=== PATIENT | female | born 1955 | race Caucasian/White ===

== ENCOUNTER 2018-08-17 09:50 | Outpatient (CLI) | payer MEDICARE, SELFPAY | END 2018-08-17 10:10 | DX: E11.9 Type 2 diabetes mellitus without complications (principal); E03.9 Hypothyroidism, unspecified | CPT/HCPCS: 36415; 83036 ==

== ENCOUNTER 2018-11-10 13:57 | Emergency (ER) | payer MEDICARE, OTHER, SELFPAY ==
[2018-11-10] VITALS (16 sets, daily range): BP systolic 127–146; BP diastolic 57–72; PULSE 72–85; RESP 13–23; TEMP 36.8; O2SAT 93–100
[2018-11-10 14:45] LABS: Abs Immature Grans 0.02 k/cumm (0.0-0.09); Absolute Basophil Count 0.05 k/cumm (0.0-0.2); Absolute Lymphocyte Count 1.59 k/cumm (1.2-3.4); Absolute Monocyte Count 0.59 k/cumm (0.11-0.7); Absolute Neutrophil Count 4.89 k/cumm (1.2-6.7); Basophils % 0.7; Eosinophils % 2.7; HCT 41.9 % (36.0-46.0); HGB 13.5 g/dL (12.0-15.5); Immature Grans % 0.3; Lymphocytes % 21.7; Mean Corp. HGB Concentration 32.2 g/dL (32.0-36.0); Mean Corpuscular Hemoglobin 27.5 pg (27.0-33.0); Mean Corpuscular Volume 85.3 fL (80-95); Mean Platelet Volume 10.3 fL (8.0-11.0); Neutrophils % 66.6; Platelet Count 337 x1000/uL (130-400); RBC 4.91 m/cumm (4.00-5.20); RBC Distribution Width 14.4 % (11.7-14.6); White Blood Cell Count 7.34 k/cumm (4.4-10.8)
[2018-11-10] MEDS: Albuterol/Ipratropium 3 ML UPD VIAL UPD (14:54)
[2018-11-10 15:16] LABS: D-Dimer 346 ng/mlFEU (<500)
--- NOTE | 2018-11-10 15:47 | DI.RAD_ITS ---
SYMPTOM/DIAGNOSIS: COUGH, SOB CHEST X-RAY: Frontal and lateral views. Comparison 07/12/17 The heart is normal in size. The lungs are clear. The mediastinal structures and pleura appear intact. CONCLUSION: Normal chest.
[2018-11-10 15:49] LABS: ALT 15 U/L (12-78); AST 13 U/L (15-37); Albumin 3.6 g/dL (3.4-5.0); Alkaline Phosphatase 58 U/L (46-116); Anion Gap 11.6 mmol/L (3-11); BUN 22 mg/dL (7-18); Bilirubin, Total 0.3 mg/dL (0.2-1.0); CO2 26.4 mmol/L (21.0-32.0); CREATININE 0.95 mg/dL (0.55-1.02); Calcium 9.3 mg/dL (8.5-10.1); Chloride 99 mmol/L (98-107); Estimated GFR 59.61 (mL/min/1.73m2); Glucose 121 mg/dL (70-100); Magnesium 1.7 mg/dL (1.8-2.4); Potassium 4.2 mmol/L (3.5-5.1); Sodium 137 mmol/L (136-145); TSH (W/Ref FT4) 0.47 uIU/mL (0.358-3.74); Total Protein 7.4 g/dL (6.4-8.2)
[2018-11-10 15:55] LABS: Troponin I < 0.02 ng/mL (0.00-0.06)
--- NOTE | 2018-11-10 18:34 | ED.GENADUL_ITS ---
Discharge Plan Disposition Patient Disposition: HOME Condition: Good Discharge Details Chief Complaint: Chest Pain Clinical Impression: Heart palpitations Primary Care Provider: Aylin Gallego ED Provider: Raul Wright Home Meds and New Rx's Prescriptions: No Action Silenor 6 mg tablet 6 mg PO QHS RF: 0 ranitidine HCl 300 mg tablet 300 mg PO DAILY Qty: 90 RF: 3 levothyroxine 137 mcg tablet 137 mcg PO DAILY Qty: 90 RF: 3 lorazepam 0.5 mg tablet 0.5 mg PO Q6H PRN MDD 0.5mg PRN (Reason: anxiety) Qty: 20 RF: 0 hydrocodone-acetaminophen 5-325 mg tablet 5 mg PO DAILY PRN MDD 5mg PRN (Reason: pain) Qty: 30 RF: 0 mupirocin calcium [Bactroban] 2 % cream 1 applic TP TID Qty: 30 RF: 0 blood-glucose meter 1 EACH misc 1 ea Miscellaneous as directed Qty: 1 RF: 0 Lantus Solostar U-100 Insulin 100 UNIT/1 ML insulin pen 40 unit SQ QPM Qty: 3 RF: 4 vit d/vit k 1 tsp PO DAILY RF: 0 Advair Diskus 1 EACH blister with device 1 puff Inhalation BID Qty: 1 RF: 3 pen needle, diabetic 1 EACH needle 6 ea Sub-Q DAILY Qty: 100 RF: 12 acetaminophen 500 MG tablet 1,000 mg PO Q6H PRN Qty: 100 RF: 0 albuterol sulfate 5 MG/1 ML solution 2.5 mg Inhalation QID Qty: 40 RF: 3 Humalog KwikPen Insulin 100 UNIT/1 ML insulin pen 6 - 15 unit SQ AC Qty: 3 RF: 3 levalbuterol tartrate [Xopenex HFA] 15 GM HFA aerosol inhaler 2 puff Inhalation QID PRN Qty: 3 RF: 3 fluticasone 16 GM spray,suspension 50 mcg NS DAILY Qty: 1 RF: 2 magnesium oxide 400 MG tablet 2 tab PO DAILY RF: 0 Levocarnitine/Pantothe/Taurine [l-Carnitine 1,000 mg/15 ml Liq] 480 ML liquid 1 tbs PO DAILY RF: 0 Hamilton ThorneTouch Ultra Test 1 EACH strip 1 ea Miscellaneous 5X/DAY Qty: 100 RF: 4 metformin 1,000 mg tablet 1,000 mg PO BID Qty: 180 RF: 4 celecoxib [Celebrex] 200 mg capsule 200 mg PO BID Qty: 180 RF: 3 duloxetine 30 mg capsule,delayed release(DR/EC) 30 mg PO As Directed Qty: 270 RF: 4 lisinopril 10 mg tablet 10 mg PO DAILY Qty: 90 RF: 3 Jardiance 25 mg tablet 25 mg PO DAILY Qty: 90 RF: 4 Discharge Instructions Instructions: Palpitations (ED) Additional Instructions: If you notice any worsening of your symptoms, or any new symptoms such as vomiting, diarrhea, fever, chills, shortness of breath, chest pain, numbness, weakness, or fainting , please return immediately to the emergency department for reevaluation. Please follow up with your primary care provider as soon as possible for reassessment and reevaluation, as well as follow-up for your Dian marcos. as always, it was a pleasure participating in your medical care today. Referrals: Aylin Gallego NP [Primary Care Provider] - Medical Decision Making This is a 63-year-old female with a past medical history of fibromyalgia, asthma, diabetes who presents today for occasional episodes of palpitations, sweatiness, and nausea. She has had no vomiting or abdominal pain. Symptoms are nonexertional. She denies any chest pain. In the past she has had episodes like this in the past, with subsequent negative stress test, Holter monitors, and other workup. She presents today for further evaluation of the symptoms. She denies any syncope, or exertional syncope. Physical exam demonstrates no significant abnormalities, no chest pain or other concerning red flags. Laboratory workup was performed, and demonstrates negative d-dimer, negative serial troponins, electrolytes appear to be within normal limits, WBC count normal, no left shift. Chest x-ray shows no evidence of pneumothorax, or significant pneumonia. The patient continues to feel excellent and asymptomatic. Serial troponins, benign workup, negative d-dimer, reassuring and normal vital signs I do feel that she can be safely discharged home with close follow-up. We will prescribe a zio patch. We discussed red flags for which to return the patient understands. I have extensively reviewed the treatment plan and discharge instructions with the patient and their family. I have addressed all patient concerns at this time. The patient and family was made aware of what symptoms to monitor for that would warrant a return to the emergency department. Discussed the plan with the patient and family, they demonstrate verbal understanding and agreement with our assessment and plan at this time. EKG 14: 23 Rate 77, intervals normal, sinus rhythm, no significant ST elevations or depressions single T wave inversion in V1 which is normal. Questionable Q waves in lead III. RSR prime in V1. No other abnormalities. These findings are present on previous EKG from 09/02/15 [facility] General Date/Time Provider Initiated Documentation: 11/10/18 14:26 . HPI Narrative: This is a 63-year-old female with past medical history of diabetes, fibromyalgia, asthma, who presents today for 4 episodes of intermittent palpitations, occasional sweatiness and clamminess, with some mild nausea. It has happened over the last few days. It is nonexertional, and usually occurs at rest. She denies any significant or severe chest pain with these episodes. She denies any pain in her arm neck or shoulders. She does have a mild cough for the last month, but states that this is nonproductive. She denies any pleuritic chest pain. She denies any hemoptysis, fever, chills, headache, neck pain, syncope. She denies any exertional component. She denies any other modifying factors. She currently states that she has no symptoms and feels very well. Related Data Home Medications Medication Instructions Recorded Confirmed blood-glucose meter #1 ea 06/10/16 11/02/18 insulin glargine [Lantus Solostar] 40 unit SQ QPM #3 box 09/08/16 11/02/18 Vit D/Vit K 1 tsp PO DAILY 11/01/16 11/02/18 fluticasone-salmeterol [Advair 1 puff INHALATION BID #1 puff 12/02/16 11/02/18 250/50 Diskus] pen needle, diabetic #100 ndl 12/27/16 11/02/18 acetaminophen 1,000 mg PO Q6H PRN #100 tab-cap 05/17/17 11/02/18 albuterol sulfate 2.5 mg INHALATION QID #40 ml 07/08/17 11/02/18 fluticasone 50 mcg NS DAILY #1 spray 08/08/17 11/02/18 insulin lispro [Humalog Syringe] 6 - 15 unit SQ AC #3 pen 08/08/17 11/02/18 levalbuterol tartrate [Xopenex Hfa] 2 puff INHALATION QID PRN #3 inh 08/08/17 11/02/18 Levocarnitine/Pantothe/Taurine 1 tbs PO DAILY 11/03/17 11/02/18 [l-Carnitine 1,000 mg/15 ml Liq] blood sugar diagnostic [Onetouch #100 strip 11/03/17 11/02/18 Ultra Test Strips] magnesium oxide 2 tab PO DAILY 11/03/17 11/02/18 hydrocodone 5 mg-acetaminophen 325 5 mg PO DAILY PRN PRN #30 tab MDD 08/17/18 11/02/18 mg tablet 5mg levothyroxine 137 mcg tablet 137 mcg PO DAILY #90 tab-cap 08/17/18 11/02/18 lorazepam 0.5 mg tablet 0.5 mg PO Q6H PRN PRN #20 tab MDD 08/17/18 11/02/18 0.5mg ranitidine 300 mg tablet 300 mg PO DAILY #90 tab 08/17/18 11/02/18 metformin 1,000 mg tablet 1,000 mg PO BID #180 tab-cap 08/28/18 11/02/18 celecoxib 200 mg capsule 200 mg PO BID #180 tab-cap 09/11/18 11/02/18 mupirocin 2 % topical cream 1 applic TP TID #30 gm 10/19/18 11/02/18 duloxetine 30 mg capsule,delayed 30 mg PO As Directed #270 tab-cap 10/30/18 11/02/18 release empagliflozin 25 mg tablet 25 mg PO DAILY #90 tab 10/30/18 11/02/18 lisinopril 10 mg tablet 10 mg PO DAILY #90 tab-cap 10/30/18 11/02/18 doxepin 6 mg tablet 6 mg PO QHS tab 11/02/18 11/02/18 Previous Rx's Medication Instructions Recorded albuterol sulfate 2.5 mg INHALATION QID #40 ml 07/08/17 fluticasone 50 mcg NS DAILY #1 spray 08/08/17 insulin lispro [Humalog Syringe] 6 - 15 unit SQ AC #3 pen 08/08/17 levalbuterol tartrate [Xopenex Hfa] 2 puff INHALATION QID PRN #3 inh 08/08/17 blood sugar diagnostic [Onetouch #100 strip 11/03/17 Ultra Test Strips] hydrocodone 5 mg-acetaminophen 325 5 mg PO DAILY PRN PRN #30 tab MDD 08/17/18 mg tablet 5mg levothyroxine 137 mcg tablet 137 mcg PO DAILY #90 tab-cap 08/17/18 lorazepam 0.5 mg tablet 0.5 mg PO Q6H PRN PRN #20 tab MDD 08/17/18 0.5mg ranitidine 300 mg tablet 300 mg PO DAILY #90 tab 08/17/18 metformin 1,000 mg tablet 1,000 mg PO BID #180 tab-cap 08/28/18 celecoxib 200 mg capsule 200 mg PO BID #180 tab-cap 09/11/18 mupirocin 2 % topical cream 1 applic TP TID #30 gm 10/19/18 duloxetine 30 mg capsule,delayed 30 mg PO As Directed #270 tab-cap 10/30/18 release empagliflozin 25 mg tablet 25 mg PO DAILY #90 tab 10/30/18 lisinopril 10 mg tablet 10 mg PO DAILY #90 tab-cap 10/30/18 Allergies Allergy/AdvReac Type Severity Reaction Status Date / Time ampicillin Allergy Intermediate rash Verified 11/02/18 09:35 latex Allergy Mild Skin Rash Verified 11/02/18 09:35 Sulfa (Sulfonamide Allergy Mild Skin Rash Verified 11/02/18 09:35 Antibiotics) carbamazepine AdvReac Mild fever, Verified 11/02/18 09:35 myalgias General Stated Complaint: Chest Pain SHIRIN: 2 Review of Systems Review of Systems All systems reviewed & are unremarkable except as noted in HPI and below PFSH Medical History Excessive cerumen in right ear canal (Acute) Skin lesion of neck (Acute) Asthma DM (diabetes mellitus) GERD (gastroesophageal reflux disease) HTN (hypertension) Hypothyroidism JASON (obstructive sleep apnea) Obesity Surgical History BARIATRIC SURGERY Biopsy of breast (~1994) Colonoscopy - IV Sedation (02/08/11) Colonoscopy - MAC (12/24/16) Ligation of fallopian tube (~1983) Open Carpal Tunnel release Trigger Finger release (~2015) Family History Mother Heart disease Neoplasm Father No problems noted. Sister Substance abuse Sister Essential hypertension Sister SIDS (sudden syndrome) Sister No problems noted. Brother Essential hypertension Brother Essential hypertension Neoplasm Grandfather Neoplasm Grandfather Neoplasm Grandmother Heart disease Grandmother Neoplasm Son No problems noted. Son Neoplasm Family History Bipolar disorder Leukemia Social History household members: other details: 2 highest education level completed: some college, no degree current occupational status: disabled pets and animals: Yes pets and animals: dog(s) what type of physical activity do you participate in: none Smoking and Tabacco status: Former Tobacco Use alcohol intake: never substance use type: does not use special jin needs: No Exam Narrative Exam Narrative: 1.Const: Well-nourished, Well-developed, appearing stated age 2.Eyes: PERRL, no conjunctival injection, and symmetrical lids. 3.ENT: Atraumatic external nose and ears. Moist MM. Neck: Symmetric, trachea midline, No thyromegaly. 4.CVS: +S1/S2, No murmurs or gallops. Peripheral pulses 2+ and equal in all extremities. Brisk capillary refill in all extremities. 5.RESP: Unlabored respiratory effort. Clear to auscultation bilaterally. No wheezes rales or rhonchi 6.GI: Soft, Nontender/Nondistended, No hepatosplenomegaly. No guarding or rebound. 7.MSK: Normocephalic/Atraumatic, Extremities w/o deformity or ttp No cyanosis or clubbing, Normal movement of all extremities 8.Skin: Warm, Dry. No rashes or lesions. 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 Sensation grossly intact, no focal neurologic deficits. 10.Psych: (AAO) x3. Appropriate mood and affect Course Vital Signs Temperature 36.8 C 11/10/18 14:12 Pulse 79 11/10/18 14:12 Respiratory Rate 18 11/10/18 14:12 Blood Pressure 146/65 H 11/10/18 14:12 Pulse Oximetry 98 11/10/18 14:12 Temperature 36.8 C 11/10/18 14:12 Temperature Source Temporal Artery Scan 11/10/18 14:12 Pulse 72 11/10/18 17:46 Pulse 73 11/10/18 17:50 Respiratory Rate 19 11/10/18 17:50 Respiratory Effort 11/10/18 14:55 Respiratory Depth Normal 11/10/18 14:55 Respiratory Pattern Normal 11/10/18 14:55 Blood Pressure 130/57 L 11/10/18 17:46 Blood Pressure Mean 75 11/10/18 17:46 Pulse Oximetry 97 11/10/18 17:50 Oxygen Delivery Method Room Air 11/10/18 14:12 Oxygen Flow Rate 0 11/10/18 14:12 Pain Level 0 11/10/18 14:12 Lab/Test Results Lab/Test Results: Laboratory Tests Range/Units 11/10/18 11/10/18 11/10/18 14:30 15:05 15:05 WBC (4.4-10.8) k/cumm 7.34 RBC (4.00-5.20) m/cumm 4.91 Hgb (12.0-15.5) g/dL 13.5 Hct (36.0-46.0) % 41.9 MCV (80-95) fL 85.3 MCH (27.0-33.0) pg 27.5 MCHC (32.0-36.0) g/dL 32.2 RDW (11.7-14.6) % 14.4 Plt Count (130-400) x1000/uL 337 MPV (8.0-11.0) fL 10.3 Immature Gran % 0.3 Neutrophils % 66.6 Lymphocytes % 21.7 Monocytes % 8.0 Eosinophils % 2.7 Basophils % 0.7 Absolute Neutrophils (1.2-6.7) k/cumm 4.89 Absolute Lymphocytes (1.2-3.4) k/cumm 1.59 Absolute Monocytes (0.11-0.7) k/cumm 0.59 Absolute Eosinophils (0.0-0.7) k/cumm 0.20 Absolute Basophils (0.0-0.2) k/cumm 0.05 D-Dimer (<500) ng/mlFEU Sodium (136-145) mmol/L 137 Potassium (3.5-5.1) mmol/L 4.2 Chloride (98-107) mmol/L 99 Carbon Dioxide (21.0-32.0) mmol/L 26.4 Anion Gap (3-11) mmol/L 11.6 H BUN (7-18) mg/dL 22 H Creatinine (0.55-1.02) mg/dL 0.95 Estimated GFR/1.73 m2 (mL/min/1.73m2) 59.61 Glucose (70-100) mg/dL 121 H Calcium (8.5-10.1) mg/dL 9.3 Magnesium Cancelled 1.7 L Total Bilirubin (0.2-1.0) mg/dL 0.3 AST (15-37) U/L 13 L ALT (12-78) U/L 15 Alkaline Phosphatase (46-116) U/L 58 Troponin I (0.00-0.06) ng/mL < 0.02 Total Protein (6.4-8.2) g/dL 7.4 Albumin (3.4-5.0) g/dL 3.6 TSH (0.358-3.74) uIU/mL 0.47 Range/Units 11/10/18 15:05 WBC (4.4-10.8) k/cumm RBC (4.00-5.20) m/cumm Hgb (12.0-15.5) g/dL Hct (36.0-46.0) % MCV (80-95) fL MCH (27.0-33.0) pg MCHC (32.0-36.0) g/dL RDW (11.7-14.6) % Plt Count (130-400) x1000/uL MPV (8.0-11.0) fL Immature Gran % Neutrophils % Lymphocytes % Monocytes % Eosinophils % Basophils % Absolute Neutrophils (1.2-6.7) k/cumm Absolute Lymphocytes (1.2-3.4) k/cumm Absolute Monocytes (0.11-0.7) k/cumm Absolute Eosinophils (0.0-0.7) k/cumm Absolute Basophils (0.0-0.2) k/cumm D-Dimer (<500) ng/mlFEU 346 Sodium (136-145) mmol/L Potassium (3.5-5.1) mmol/L Chloride (98-107) mmol/L Carbon Dioxide (21.0-32.0) mmol/L Anion Gap (3-11) mmol/L BUN (7-18) mg/dL Creatinine (0.55-1.02) mg/dL Estimated GFR/1.73 m2 (mL/min/1.73m2) Glucose (70-100) mg/dL Calcium (8.5-10.1) mg/dL Magnesium Total Bilirubin (0.2-1.0) mg/dL AST (15-37) U/L ALT (12-78) U/L Alkaline Phosphatase (46-116) U/L Troponin I (0.00-0.06) ng/mL Total Protein (6.4-8.2) g/dL Albumin (3.4-5.0) g/dL TSH (0.358-3.74) uIU/mL
[2018-11-10 18:38] LABS: Troponin I < 0.02 ng/mL (0.00-0.06)
== END 2018-11-10 19:20 | disposition home or self-care (01) ==
PROVIDERS: Emergency Provider Student in an Organized Health Care Education/Training Program
DX: R00.2 Palpitations (principal); R11.0 Nausea; E11.9 Type 2 diabetes mellitus without complications; Z79.4 Long term (current) use of insulin; I10 Essential (primary) hypertension
CPT/HCPCS: 80053; 93005; 93225; 94640; 99285; 71046; 83735; 84443; 84484; 85025; 85379; 93010; J7620

== ENCOUNTER 2018-11-16 02:13 | Outpatient (CLI) | payer MEDICARE, OTHER, SELFPAY ==
[2018-11-16 10:56] LABS: Hemoglobin A1C 9.9 % (4.5-6.2)
[2018-11-16 11:03] LABS: ALT 23 U/L (12-78); AST 13 U/L (15-37); Albumin 3.8 g/dL (3.4-5.0); Alkaline Phosphatase 66 U/L (46-116); Anion Gap 17.5 mmol/L (3-11); BUN 16 mg/dL (7-18); Bilirubin, Total 0.4 mg/dL (0.2-1.0); CO2 22.5 mmol/L (21.0-32.0); CREATININE 0.95 mg/dL (0.55-1.02); Calcium 10.2 mg/dL (8.5-10.1); Chloride 99 mmol/L (98-107); Cholesterol 270 mg/dL (50-200); Estimated GFR 59.61 (mL/min/1.73m2); Glucose 124 mg/dL (70-100); HDL Cholesterol 36 mg/dL (40-60); LDL CHOLESTEROL 187 mg/dL (<100); Potassium 4.5 mmol/L (3.5-5.1); Sodium 139 mmol/L (136-145); TSH (W/Ref FT4) 0.17 uIU/mL (0.358-3.74); Total Protein 7.7 g/dL (6.4-8.2); Triglyceride 226 mg/dL (30-150)
[2018-11-16 11:24] LABS: FREE T4 1.89 ng/dL (0.76-1.46)
--- NOTE | 2018-11-29 20:02 | ZIOP_ITS ---
ZIO PATCH REPORT DATE OF READING: November 29, 2018 STUDY INDICATION: Palpitations. REQUESTING PROVIDER: Aylin Gallego N.P. FINDINGS: The patient was monitored for 7 days and 5 hours. The predominant underlying rhythm was sinus rhythm. Average heart rate in sinus rhythm 82 beats per minute, range of 56-136 beats per minute. There was rare ectopy, <1% PACs, and <1% PVCs. There was a 5 beat ventricular run, average heart rate 159 beats per minute, range 124-203 beats per minute. There were 4 episodes of supraventricular tachycardia, average heart rate 159 beats per minute, range of 76-218 beats per minute. The longest episode lasted 13 beats with an average heart rate of 187 beats per minute. There were no pauses greater than 3 seconds. There was no higher degree heart block. There were 8 patient events, 1 event correlated with PVCs and PACs, all other events did not correlate with arrhythmias. FINAL INTERPRETATION: Minor atrial and ventricular arrhythmias, asymptomatic.
== END 2018-11-16 02:33 ==
DX: I10 Essential (primary) hypertension (principal); E11.9 Type 2 diabetes mellitus without complications; E03.9 Hypothyroidism, unspecified; E78.5 Hyperlipidemia, unspecified; F32.9 Major depressive disorder, single episode, unspecified; G47.33 Obstructive sleep apnea (adult) (pediatric); K21.9 Gastro-esophageal reflux disease without esophagitis; E66.9 Obesity, unspecified; Z98.84 Bariatric surgery status; G47.00 Insomnia, unspecified
CPT/HCPCS: 36415; 80053; 80061; 83721; 83036; 84439; 84443

== ENCOUNTER 2018-12-07 00:29 | Outpatient (CLI) | payer MEDICARE, OTHER, SELFPAY ==
--- NOTE | 2018-12-07 09:00 | DI.MAMMO_ITS ---
SYMPTOM/DIAGNOSIS: SCREENING, Z12.31 MAMMOGRAMS: Mammograms were interpreted according to the usual protocol including computer analysis with CAD system, tomosynthesis and C view imaging. Comparison is with the prior examinations. No suspicious masses or microcalcifications are seen. There is no definite evidence of malignancy. IMPRESSION: Negative mammogram. Routine screening is recommended. Category 1. Breast density B. MQSA ASSESSMENT OF FINDINGS: Negative. Category 1. Patient will receive a letter notifying them of these results. BI-RADS category B. There are scattered areas of fibroglandular density.
== END 2018-12-07 00:49 ==
DX: Z12.31 Encounter for screening mammogram for malignant neoplasm of breast (principal)
CPT/HCPCS: 77063; 77067

== ENCOUNTER 2019-01-24 02:02 | Outpatient (CLI) | payer MEDICARE, OTHER, SELFPAY ==
[2019-01-24 11:41] LABS: TSH (W/Ref FT4) 0.19 uIU/mL (0.358-3.74)
[2019-01-24 12:09] LABS: FREE T4 1.21 ng/dL (0.76-1.46)
== END 2019-01-24 02:22 ==
DX: E03.9 Hypothyroidism, unspecified (principal)
CPT/HCPCS: 36415; 84439; 84443

== ENCOUNTER 2019-05-03 01:27 | Outpatient (CLI) | payer MEDICARE, OTHER, SELFPAY ==
[2019-05-03 11:14] LABS: Hemoglobin A1C 11.5 % (4.5-6.2)
[2019-05-03 11:23] LABS: TSH (W/Ref FT4) 1.23 uIU/mL (0.36-3.74)
== END 2019-05-03 01:47 ==
DX: E03.9 Hypothyroidism, unspecified (principal); E11.9 Type 2 diabetes mellitus without complications
CPT/HCPCS: 36415; 83036; 84443

== ENCOUNTER 2019-07-26 07:01 | Outpatient (CLI) | payer MEDICARE, OTHER, SELFPAY ==
--- NOTE | 2019-07-26 09:16 | DI.MRI_ITS ---
EXAM: MR LUMBAR SPINE WO CLINICAL HISTORY: Rule out nerve root damage,foot drop rt, chronic back pain. TECHNIQUE: Multiplanar multisequence MRI was performed. COMPARISON: MRI - LUMBAR SPINE WO CONTRAST from 03/11/2014 FINDINGS: No significant bony signal abnormality is seen. The conus medullaris appears intact. No significant findings from the T12-L1 level to the L3-4 level. Bony spinal canal appears intact throughout. At L4-5, there is central disc herniation which is moderate in size. There is moderate facet hypertr ophy at L4-5. Central disc herniation and facet hypertrophy cause borderline central canal spinal aditya nosis. Neural foramina appear well maintained. Disc herniation is most prominent centrally but also extends to the right side. There is possible impingement on right L5 nerve root. At L5-S1, there is moderate central canal spinal stenosis and prominence of the disc-osteophyte compl ex. There is bilateral neural foraminal narrowing. There is moderate hypertrophic degenerative lopes e of the facet joints at L5-S1 as well. IMPRESSION: Central to right-sided disc herniation at L4-5, possible impingement right L5 nerve root. Moderate central canal spinal stenosis and bilateral neural foraminal stenosis at L5-S1
== END 2019-07-26 07:21 ==
DX: M54.5 Low back pain (principal); M21.371 Foot drop, right foot; M51.16 Intervertebral disc disorders with radiculopathy, lumbar region; M48.07 Spinal stenosis, lumbosacral region
CPT/HCPCS: 72148

== ENCOUNTER 2020-07-29 21:26 | Outpatient (REF) | payer MEDICARE, OTHER, SELFPAY ==
[2020-07-29 22:12] LABS: ALT 24 U/L (14-59); AST 17 U/L (15-37); Alkaline Phosphatase 72 U/L (46-116); Anion Gap 8.7 mmol/L (3-11); BUN 27 mg/dL (7-18); Bilirubin, Total 0.3 mg/dL (0.2-1.0); CO2 26.3 mmol/L (21.0-32.0); CREATININE 0.89 mg/dL (0.55-1.02); Calcium 9.1 mg/dL (8.5-10.1); Calculated LDL 149 mg/dL (<100); Chloride 101 mmol/L (98-107); Cholesterol 242 mg/dL (<200); Glucose 81 mg/dL (74-106); HDL Cholesterol 66 mg/dL (40-60); Potassium 4.6 mmol/L (3.5-5.1); Sodium 136 mmol/L (136-145); TSH (W/Ref FT4) 0.92 uIU/mL (0.36-3.74); Total Protein 7.5 g/dL (6.4-8.2); Triglyceride 135 mg/dL (<150)
[2020-07-29 22:18] LABS: Hemoglobin A1C 9.2 % (<5.7)
[2020-07-29 22:50] LABS: COMMENT (LAB VIEW ONLY) 43.73 mg/dL; Microalb ug/mg Crea 57.2 ug/mg Cr
== END 2020-07-29 21:46 ==
LOC: LBN 21:26
PROVIDERS: Visit Provider Nurse Practitioner Family
DX: G56.00 Carpal tunnel syndrome, unspecified upper limb (principal); I10 Essential (primary) hypertension; R07.9 Chest pain, unspecified; E11.65 Type 2 diabetes mellitus with hyperglycemia
CPT/HCPCS: 80053; 80061; 82043; 82570; 83036; 84443

== ENCOUNTER 2020-09-03 01:06 | Outpatient (CLI) | payer MEDICARE, OTHER, SELFPAY ==
--- NOTE | 2020-09-03 08:20 | DI.MAMMO_ITS ---
EXAM: MG MAMMO SCREENING CLINICAL HISTORY: screening,z12.39. TECHNIQUE: Bilateral full field digital CC and MLO mammographic images were obtained with 3D tomosyn thesis and utilizing computer aided detection (CAD). COMPARISON: Prior mammograms dating back to 2010, the most recent being December 2018. FINDINGS: No new significant radiograph findings in the right breast. In the left breast there is a new small group of microcalcifications in the upper-outer quadrant loca asa 16 centimetres in from the nipple. Mag views recommend. No mass evident at this location. The re is no new architectural distortion nor skin thickening-retraction. IMPRESSION: 1. No radiographic evidence of malignancy in the right breast. 2. Left breast microcalcification group which requires 2D spot Mag views. BI-RADS Category 0 - Assessment Incomplete: Need additional imaging evaluation Breast Density - Category B - Scattered areas of fibroglandular density Breast density Category C or D implies that the patient has dense breast tissue. Dense breast tissue can make it harder to find cancer on a mammogram. Dense breast tissue is also associated with an incr eased risk of breast cancer. This information about the result of the mammogram report was provided to the patient to raise their awareness. Use this report when you speak with the patient about their risks for breast cancer, which includes their family history. At that time, you may recommend additional screening tests (Ultrasoun d or MRI) as these tests may add significant information. A negative radiographic report should not delay biopsy if a dominant or clinically suspicious mass is present. Up to ten percent of cancers are not identified on mammography. A negative report may reinforce clinical impression. Adenosis and dense breasts may obscure an underlying neoplasm. False positive reports average 6 to 10%. Patient will receive a letter notifying them of these results.
== END 2020-09-03 01:26 ==
DX: Z12.31 Encounter for screening mammogram for malignant neoplasm of breast (principal); R92.0 Mammographic microcalcification found on diagnostic imaging of breast
CPT/HCPCS: 77063; 77067

== ENCOUNTER 2020-09-05 03:36 | Outpatient (CLI) | payer MEDICARE, OTHER, SELFPAY ==
--- NOTE | 2020-09-05 15:00 | DI.MAMMO_ITS ---
EXAM: MG MAMMO SCREEN CALL BACK UNI CLINICAL HISTORY: F/U MAMMO, NEW SMALL GROUP OF MICROCALCIFICATIONS UOQ LT BREAST TECHNIQUE: Spot magnification CC and MLO views were performed of the upper outer quadrant of the lef t breast. COMPARISON: 2010 through 2018. Recent exam of September 21 FINDINGS: The breasts are composed of scattered fibroglandular densities, Breast Density category B. No suspicious masses. A grouping of calcification is barely visible on the magnification views. Th ere are no suspicious features. In retrospect, the calcifications were visible on the 2018 and 2018 exams and appear unchanged. IMPRESSION: BI-RADS Category 2 - Benign Findings Yearly screening mammography is recommended. Breast Density - Category B, scattered fibroglandular densities.
== END 2020-09-05 03:56 ==
DX: R92.0 Mammographic microcalcification found on diagnostic imaging of breast (principal); R92.2 Inconclusive mammogram
CPT/HCPCS: 77063; 77067

== ENCOUNTER 2020-11-17 01:56 | Outpatient (CLI) | payer MEDICARE, OTHER, SELFPAY ==
[2020-11-17 12:11] LABS: HCT 47.2 % (36.0-46.0); HGB 14.8 g/dL (11.2-15.7); MCH 26.9 pg (27.0-33.0); MCHC 31.4 % (32.0-36.0); MCV 85.7 fL (80-95); MPV 9.3 fL (8.0-11.0); Platelet Count 408 10^3/uL (130-400); RBC 5.51 10^6/uL (3.93-5.22); RDW 15.3 % (11.7-14.6); RDW-SD 48.7 fL
[2020-11-17 12:28] LABS: Hemoglobin A1C 8.5 % (<5.7)
[2020-11-17 13:29] LABS: Amylase 42 U/L (25-115); Lipase 144 U/L (73-393); TSH (W/Ref FT4) 10.78 uIU/mL (0.36-3.74)
[2020-11-17 13:52] LABS: FREE T4 0.98 ng/dL (0.76-1.46)
== END 2020-11-17 01:57 | disposition home or self-care (01) ==
LOC: LBO 01:56
DX: E03.9 Hypothyroidism, unspecified (principal); E11.65 Type 2 diabetes mellitus with hyperglycemia; D50.9 Iron deficiency anemia, unspecified; R10.12 Left upper quadrant pain; G47.00 Insomnia, unspecified; Z79.4 Long term (current) use of insulin
CPT/HCPCS: 36415; 83690; 85027; 82150; 83036; 84439; 84443

== ENCOUNTER 2020-11-27 09:40 | Outpatient (CLI) | payer MEDICARE, OTHER, SELFPAY ==
[2020-11-27 12:38] LABS: Abs Immature Grans 0.02 10^3/uL (0.0-0.06); Absolute Basophil Count 0.08 10^3/uL (0.0-0.2); Absolute Eosinophil Count 0.33 10^3/uL (0.0-0.7); Absolute Lymphocyte Count 1.84 10^3/uL (1.2-3.4); Absolute Monocyte Count 0.67 10^3/uL (0.1-0.8); Absolute Neutrophil Count 3.77 10^3/uL (1.2-6.7); Basophils % 1.2; Eosinophils % 4.9; HGB 13.4 g/dL (11.2-15.7); Immature Grans % 0.3; Lymphocytes % 27.4; MCH 26.9 pg (27.0-33.0); MCHC 31.9 % (32.0-36.0); MCV 84.3 fL (80-95); MPV 10.8 fL (8.0-11.0); Neutrophils % 56.2; Nucleated RBC 0 %; Platelet Count 349 10^3/uL (130-400); RBC 4.98 10^6/uL (3.93-5.22); RDW 15.9 % (11.7-14.6); RDW-SD 48.2 fL; WBC 6.71 10^3/uL (4.4-10.8)
[2020-11-27 13:07] LABS: ALT 25 U/L (14-59); AST 16 U/L (15-37); Albumin 4.1 g/dL (3.4-5.0); Alkaline Phosphatase 59 U/L (46-116); Anion Gap 9.7 mmol/L (3-11); BUN 28 mg/dL (7-18); Bilirubin, Total 0.3 mg/dL (0.2-1.0); CO2 31.3 mmol/L (21.0-32.0); CREATININE 1.2 mg/dL (0.55-1.02); Calcium 9.8 mg/dL (8.5-10.1); Chloride 94 mmol/L (98-107); Estimated GFR 45.23 (mL/min/1.73m2); Glucose 114 mg/dL (74-106); Potassium 4.3 mmol/L (3.5-5.1); Sodium 135 mmol/L (136-145); Total Protein 7.5 g/dL (6.4-8.2)
== END 2020-11-27 09:41 | disposition home or self-care (01) ==
LOC: LOS 09:41
DX: R10.12 Left upper quadrant pain (principal)
CPT/HCPCS: 36415; 80053; 85025

== ENCOUNTER 2020-12-05 03:59 | Outpatient (CLI) | payer MEDICARE, OTHER, SELFPAY ==
--- NOTE | 2020-12-05 07:45 | DI.US_ITS ---
EXAM: US ABDOMEN CLINICAL HISTORY: LUQ worsening pain,R10.12 TECHNIQUE: Ultrasound abdomen performed using standard protocol. COMPARISON: No exams were available for comparison FINDINGS: ABDOMINAL AORTA AND IVC: Visualized portions normal caliber. PANCREAS: Normal where visualized. LIVER: Normal. Hepatopedal flow in the Portal Vein. The liver measures 18 cm in length. GALLBLADDER: No evidence of cholelithiasis. No evidence of wall thickening. No pericholecystic fluid identified. BILIARY SYSTEM: Common bile duct measures < 7 mm. No intrahepatic biliary ductal dilation. VEGA'S SIGN: Negative. KIDNEYS: The inferior poles of the kidneys extend into the lower abdomen and appear to connect inferi satish. Suggestive of a horseshoe kidney. This is confirmed on the MRI of the lumbar spine from 07/26. No evidence of renal calculi. No evidence of hydronephrosis. No renal mass or cyst identified. SPLEEN: Not enlarged. ASCITES: None seen. IMPRESSION: 1. No evidence of cholelithiasis or biliary ductal dilatation. 2. Mild hepatomegaly. 3. 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 DATA REPOSITORY:
== END 2020-12-05 04:19 ==
DX: R10.12 Left upper quadrant pain (principal); R16.0 Hepatomegaly, not elsewhere classified
CPT/HCPCS: 76700

== ENCOUNTER 2021-04-22 02:07 | Outpatient (CLI) | payer MEDICARE, OTHER, SELFPAY ==
--- NOTE | 2021-04-22 08:15 | DI.MAMMO_ITS ---
Exam(s) MG MAMMO DIAGNOSTIC UNI US BREAST RT LIMITED EXAM: MG MAMMO DIAGNOSTIC UNI RIGHT AND LIMITED RIGHT BREAST ULTRASOUND CLINICAL HISTORY: Right breast lump, noticed today.N63.13. TECHNIQUE: BOTH CC AND MLO VIEWS OF THE RIGHT BREAST PERFORMED. Also performed additional spot view of the area of concern.. Obtained with 3D Tomosynthesistechnique and utilizing computer aided detec tion (CAD). Also performed limited right breast ultrasound of the new palpable area of concern in the upper-outer quadrant. COMPARISON: Prior mammograms dating back to 2010, the most recent being September 2020. This patient feels a new right breast lump for the last 2 months at approximately 10 o'clock position FINDINGS: Today's right breast mammogram reveals no evidence of new nodule. No malignant-appearing microcalcif ication groups. No new architectural distortion or skin thickening-retraction. Right breast ultrasound was performed over the area of concern in the upper outer quadrant and reveal s 2 findings at the 10 o'clock position. There is an 8 x 4 millimeter benign lipoma. There is also a superficial subdermal 4 x 4 millimeter septated cyst which appears to exactly corresp onds to a palpable finding. This has the appearance of a probable sebaceous cyst or very superficial complicated cyst in the breast. IMPRESSION: No mammographic evidence of malignancy in the right breast. Ultrasound reveals a 4 millimeter complicated cyst or sebaceous cyst at 10 o'clock position of the ri ght breast corresponding to her palpable finding. Appropriate follow-up is repeat right breast ULTRASOUND in 3 months. Findings and recommendations were discussed by myself with the patient today. BI-RADS Category 3 - 3 month - Probably Benign Finding: Recommend follow-up ULTRASOUND in 3 months Breast Density - Category C - Heterogeneously dense Breast density Category C or D implies that the patient has dense breast tissue. Dense breast tissue can make it harder to find cancer on a mammogram. Dense breast tissue is also associated with an incr eased risk of breast cancer. This information about the result of the mammogram report was provided to the patient to raise their awareness. Use this report when you speak with the patient about their risks for breast cancer, which includes their family history. At that time, you may recommend additional screening tests (Ultrasoun d or MRI) as these tests may add significant information. A negative radiographic report should not delay biopsy if a dominant or clinically suspicious mass is present. Up to ten percent of cancers are not identified on mammography. A negative report may reinforce clinical impression. Adenosis and dense breasts may obscure an underlying neoplasm. False positive reports average 6 to 10%. Patient will receive a letter notifying them of these results.
== END 2021-04-22 02:27 ==
PROVIDERS: Visit Provider Nurse Practitioner Family
DX: N60.01 Solitary cyst of right breast; R92.2 Inconclusive mammogram
CPT/HCPCS: 76642; 77061; 77065; G0279

== ENCOUNTER 2021-07-24 01:14 | Outpatient (CLI) | payer MEDICARE, OTHER, SELFPAY ==
--- NOTE | 2021-07-24 07:30 | DI.US_ITS ---
Exam(s) US BREAST RT LIMITED EXAM: US BREAST RT LIMITED CLINICAL HISTORY: 3 month f/u cystic lesion at 10:00 right breast TECHNIQUE: Ultrasound right breast performed using standard protocol. COMPARISON: US US BREAST RT LIMITED from 04/22/2021 FINDINGS: There has been no change in the 1 cm lipoma. There has been no change in appearance of the 0.2 x 0.2 x 0.3 cm subcutaneous cystic lesion at the 10 o'clock position of the right breast 6 cm from the nip ple. No findings suspicious for malignancy. IMPRESSION: 1. Stable cyst at the 10 o'clock position of the right breast 6 cm from the nipple. 2. A follow-up ultrasound in 9 months is recommended for re-evaluation. 3. Findings were discussed with the patient on the date of the examination. BI-RADS Category 3 - Probably Benign Finding: Recommend follow-up imaging as described above. DATA REPOSITORY:
== END 2021-07-24 01:34 ==
DX: Q83.9 Congenital malformation of breast, unspecified (principal); R92.8 Other abnormal and inconclusive findings on diagnostic imaging of breast; N60.01 Solitary cyst of right breast
CPT/HCPCS: 76642

== ENCOUNTER 2021-07-31 10:01 | Emergency (ER) | payer MEDICARE, OTHER, SELFPAY ==
--- NOTE | 2021-07-31 10:00 | RT.EKG_ITS ---
APPROVED REPORT Exam: Resting ECG Reason for Exam: syncope Patient Location: E HR:62 bpm ECG Measurements Heart Rate 62 AXIS MN 150 P 59 QRSd 90 QRS 18 QT 428 T 28 QTc 435 Conclusion Sinus rhythm...normal P axis, V-rate 60- 99 Low voltage, precordial leads...precordial leads <1.0mV Physician: Rate 62, intervals normal, no significant ST elevation or depression. No evidence of sign ificant heart strain on EKG. No evidence of STEMI small Q waves noted in lead III. Inverted T wave in V1. Unchanged from prior EKG on 11/10/18
[2021-07-31 10:08] VITALS: BP 117/73; PULSE 64; TEMP 36.6; O2SAT 97
--- NOTE | 2021-07-31 10:24 | W.ED.GENAD ---
Discharge Plan Disposition Patient Disposition: HOME Condition: Good Discharge Details Clinical Impression: COVID-19, Syncope, Pneumonia due to 2019-nCoV Primary Care Provider: Aylin Gallego ED Provider: Raul Wright Home Meds and New Rx's Prescriptions: Continued potassium gluconate 595 mg (99 mg) tablet 595 mg PO DAILY RF: 0 gabapentin 300 mg capsule 300 mg PO BID Qty: 180 RF: 3 omeprazole 20 mg capsule,delayed release(DR/EC) 20 mg PO DAILY Qty: 90 RF: 3 albuterol sulfate 5 mg/mL solution for nebulization 2.5 mg Inhalation QID PRN (Reason: shortness of breath or wheezing) Qty: 40 RF: 3 lorazepam 1 mg tablet 1 mg PO DAILY MDD 1mg PRN (Reason: anxiety) Qty: 20 RF: 0 mupirocin 2 % ointment 1 applic topical BID Qty: 22 RF: 0 lisinopril-hydrochlorothiazide 20-12.5 mg tablet 1 tab PO DAILY Qty: 90 RF: 3 (DME) blood-glucose meter 1 EACH misc 1 ea Miscellaneous as directed Qty: 1 RF: 0 vit d/vit k 1 tsp PO DAILY RF: 0 (DME) pen needle, diabetic 1 EACH needle 6 ea Sub-Q DAILY Qty: 100 RF: 12 acetaminophen 500 MG tablet 1,000 mg PO Q6H PRN Qty: 100 RF: 0 magnesium oxide 400 MG tablet 2 tab PO DAILY RF: 0 fluticasone propionate 50 mcg/actuation spray,suspension 50 mcg NS BID PRN (Reason: nasal congestion) Qty: 1 RF: 2 (DME) pen needle, diabetic [BD Ultra-Fine Mini Pen Needle] 31 gauge x 3/16 needle See Rx Instructions .ROUTE .MEDSUPPLY Qty: 100 RF: 3 Tresiba FlexTouch U-100 100 unit/mL (3 mL) insulin pen 10 - 50 unit SC DAILY Qty: 15 RF: 6 (DME) blood sugar diagnostic Strip 1 ea Miscellaneous 5X/DAY Qty: 100 RF: 4 duloxetine 30 mg capsule,delayed release(DR/EC) 30 mg PO As Directed Qty: 270 RF: 4 levalbuterol tartrate [Xopenex HFA] 45 mcg/actuation HFA aerosol inhaler 2 puff Inhalation QID PRN Qty: 3 RF: 3 nystatin 100,000 unit/gram powder 1 applic TP BID Qty: 120 RF: 3 celecoxib [Celebrex] 200 mg capsule 200 mg PO BID Qty: 180 RF: 3 metformin 1,000 mg tablet 1,000 mg PO DAILY Qty: 90 RF: 4 levothyroxine 137 mcg tablet 137 mcg PO DAILY Qty: 90 RF: 3 Jardiance 25 mg tablet 25 mg PO DAILY Qty: 90 RF: 4 Discharge Instructions Instructions: COVID-19 (Coronavirus Disease 2019) (ED) Additional Instructions: At this time your CT scan shows no blood clots but does show evidence of mild Covid pneumonia. Between this and your labs there at this time is not a suggestion of bacterial pneumonia. Please continue to monitor your symptoms closely at home. Please follow-up closely with your primary care provider. Please use your home nebulizers every 4 hours for the next 2 to 3 days as needed. Please use the pulse ox as we have shown If you notice any worsening of your symptoms, or any new symptoms such as vomiting, diarrhea, fever, chills, shortness of breath, chest pain, numbness, weakness, or fainting , please return immediately to the emergency department for reevaluation. Please follow up with your primary care provider as soon as possible for reassessment and reevaluation. As always, it was a pleasure participating in your medical care today. Stand Alone Forms: POSITIVE COVID-19/NO TESTING Referrals: Aylin Gallego NP [Primary Care Provider] - Medical Decision Making This is a 65-year-old female with a past medical history of asthma, depression, diabetes, GERD, hypertension, high cholesterol, hypothyroidism, obstructive sleep apnea, obesity and fibromyalgia. She presents today for evaluation of fevers, chills, malaise, cough, mild chest pain. Patient was vaccinated in January with him during a vaccine. Second dose was in January. 8 days ago the patient developed a mild sore throat, mild cough, chills and malaise. She had mild aches that eventually developed as well. Over the last few days she developed mild cough, mild shortness of breath, mild pain with deep inspiration and other continued constitutional symptoms. She denies any long trips surgery or procedures. No history of IA or blood clots. No calf pain or leg pain or swelling in her lower extremities. She denies any neck pain. She denies any urinary complaints. Her significant other is at bedside, and he has had a mild scratchy throat but that is all. She has been breathing treatments at home with no significant improvement. Patient also does admit to 2 episodes of syncope that occurred at home while micturating. She denies falling or hitting her head. No trauma. She states that she was near the ground when it occurred but did not fall down. Patient denies any other complaints at this time. No other modifying factors Exam demonstrates mild crackles and wheeze in the left lung valladares. Oxygenation status is excellent, heart rate stable with no tachycardia. Patient afebrile. Symptoms at this time appear mild, and does not show evidence of severe Covid, patient is in the window for monoclonal antibody therapy, we did contact pharmacy in regards to which therapy to utilize, and we will be using the dual agent therapy per their recommendation that the patient qualifies for outpatient management of this. We will gently rehydrate, give breathing treatments, do a D-dimer to evaluate for potential PE, monitor closely and reassess. We will get a proBNP to evaluate for signs of heart strain or fluid overload secondary to potential PE. Additionally the patient does qualify for the monoclonal antibody infusion, and I do feel that she would benefit from this given her current state. She is not hypoxic or deathly ill at this time, and so I do feel she that she would qualify for the outpatient infusion component. We will administer that here. Patient does consent for this, does state that she would like it to 1:16 PM Laboratory work-up has returned, no white count bandemia or left shift. She does have mild lymphopenia consistent with Covid. Transaminases are otherwise stable though, platelets are stable. Troponin normal, lactate is normal, lactate dehydrogenase is normal, and pro calcitonin is also negative. proBNP is normal suggesting no signs of overload. CTA shows no evidence of pulmonary embolism, there is evidence of patchy peripheral pulmonary opacities consistent with Covid pneumonia. Symptoms appear inconsistent with bacterial consolidation or pneumonia at this time. No indication for antibiotics. After breathing treatments on reassessment patient states she is feeling much improved. With stable vital signs, and having had a recent received the monoclonal antibody therapy, and no evidence of PE, or significant intracranial abnormality on CT scan of the head, I do feel that the patient would be a candidate for outpatient management at this time. No indication for Decadron or high-dose steroids at this stage of illness. No indication for admission currently. Recommend close follow-up with her PCP within the next few days. I spent a long time discussing with both the patient and her significant other signs and symptoms that would represent central bacterial pneumonia or worsening of her symptomatology. We will recommend that the patient continue to use her albuterol nebulizer every 4 hours for the next 2 to 3 days. Discussed red flags which to return. I have extensively reviewed the treatment plan and discharge instructions with the patient. I have addressed all patient concerns at this time. The patient was made aware of what symptoms to monitor for that would warrant a return to the emergency department. Discussed the plan with the patient, they demonstrate verbal understanding and agreement with our assessment and plan at this time. The documentation in this chart was dictated using [employer] dictation software. Please excuse any dictation errors. EKG 10: 22 Rate 62, intervals normal, no significant ST elevation or depression. No evidence of significant heart strain on EKG. No evidence of STEMI small Q waves noted in lead III. Inverted T wave in V1. Unchanged from prior EKG on 11/10/18 FINDINGS: CT angiography of the chest was performed with intravenous infusion of 100 cc of Omnipaque 350. There are bilateral predominantly peripheral ground-glass and reticular intrapulmonary infiltrates. Patient is reportedly COVID positive and the findings are consistent with a COVID pneumonia. No pleural effusion. Tracheobronchial tree appears intact. No evidence of pulmonary embolic disease. Thoracic aorta is of normal diameter, no thoracic aortic aneurysm or dissection, major branch vessels appear intact. The heart is mildly enlarged. No mediastinal or hilar adenopathy. Images obtained through the upper abdomen show unremarkable appearance of the visualized portions of the liver, spleen, pancreas, adrenals, and kidneys. IMPRESSION: No evidence of pulmonary embolic disease. There is an apparent patchy predominantly peripheral pattern pulmonary opacities consistent with COVID pneumonia. FINDINGS: There was significant motion artifact which obscures portions of the brain, particularly on inferior portions of the scan. The ventricular system is normal in appearance. No evidence of acute intracranial hemorrhage, mass effect, or midline shift. The orbital structures are unremarkable. The temporal bone structures appear intact. Calvarium: Normal. Visualized Paranasal sinuses/Mastoids: Clear. IMPRESSION: Normal cranial CT, somewhat limited by motion artifact as described above.. HPI General Date/Time Provider Initiated Documentation: 07/31/21 10:03. HPI Narrative: This is a 65-year-old female with a past medical history of asthma, depression, diabetes, GERD, hypertension, high cholesterol, hypothyroidism, obstructive sleep apnea, obesity and fibromyalgia. She presents today for evaluation of fevers, chills, malaise, cough, mild chest pain. Patient was vaccinated in January with him during a vaccine. Second dose was in January. 8 days ago the patient developed a mild sore throat, mild cough, chills and malaise. She had mild aches that eventually developed as well. Over the last few days she developed mild cough, mild shortness of breath, mild pain with deep inspiration and other continued constitutional symptoms. She denies any long trips surgery or procedures. No history of IA or blood clots. No calf pain or leg pain or swelling in her lower extremities. She denies any neck pain. She denies any urinary complaints. Her significant other is at bedside, and he has had a mild scratchy throat but that is all. She has been breathing treatments at home with no significant improvement. Patient denies any other complaints at this time. No other modifying factors Related Data Home Medications Medication Instructions Recorded Confirmed blood-glucose meter #1 ea 06/10/16 06/09/21 Vit D/Vit K 1 tsp PO DAILY 11/01/16 07/31/21 pen needle, diabetic #100 ndl 12/27/16 06/09/21 acetaminophen 1,000 mg PO Q6H PRN #100 tab-cap 05/17/17 07/31/21 magnesium oxide 2 tab PO DAILY 11/03/17 07/31/21 fluticasone propionate 50 50 mcg NS BID PRN #1 spray 04/23/19 07/31/21 mcg/actuation nasal spray,suspension potassium gluconate 595 mg (99 mg) 595 mg PO DAILY 05/03/19 07/31/21 tablet pen needle, diabetic 31 gauge x #100 each 05/09/19 06/09/2112/16 insulin degludec 100 unit/mL (3 10 - 50 unit SC DAILY #15 ml 02/04/20 07/31/21 mL) subcutaneous pen blood sugar diagnostic #100 strip 02/05/20 06/09/21 duloxetine 30 mg capsule,delayed 30 mg PO As Directed #270 tab-cap 06/25/20 07/31/21 release levalbuterol tartrate 45 2 puff INHALATION QID PRN #3 inh 07/10/20 07/31/21 mcg/actuation aerosol inhaler albuterol sulfate 5 mg/mL(0.5 %) 2.5 mg INHALATION QID PRN #40 ml 08/11/20 07/31/21 solution for nebulization lorazepam 1 mg tablet 1 mg PO DAILY PRN #20 tab MDD 1mg 08/11/20 07/31/21 mupirocin 2 % topical ointment 1 applic TOPICAL BID #22 g 08/11/20 07/31/21 nystatin 100,000 unit/gram topical 1 applic TP BID #120 g 09/12/20 07/31/21 powder celecoxib 200 mg capsule 200 mg PO BID #180 tab-cap 10/15/20 07/31/21 metformin 1,000 mg tablet 1,000 mg PO DAILY #90 tab-cap 10/15/20 07/31/21 lisinopril 20 1 tab PO DAILY #90 tab 11/10/20 07/31/21 mg-hydrochlorothiazide 12.5 mg tablet levothyroxine 137 mcg tablet 137 mcg PO DAILY #90 tab 01/05/21 07/31/21 empagliflozin 25 mg tablet 25 mg PO DAILY #90 tab 03/19/21 07/31/21 gabapentin 300 mg capsule 300 mg PO BID #180 cap 06/09/21 07/31/21 omeprazole 20 mg capsule,delayed 20 mg PO DAILY #90 cap 06/09/21 07/31/21 release Previous Rx's Medication Instructions Recorded fluticasone propionate 50 50 mcg NS BID PRN #1 spray 04/23/19 mcg/actuation nasal spray,suspension pen needle, diabetic 31 gauge x #100 each 05/09/1912/16 insulin degludec 100 unit/mL (3 10 - 50 unit SC DAILY #15 ml 02/04/20 mL) subcutaneous pen blood sugar diagnostic #100 strip 02/05/20 duloxetine 30 mg capsule,delayed 30 mg PO As Directed #270 tab-cap 06/25/20 release levalbuterol tartrate 45 2 puff INHALATION QID PRN #3 inh 07/10/20 mcg/actuation aerosol inhaler albuterol sulfate 5 mg/mL(0.5 %) 2.5 mg INHALATION QID PRN #40 ml 08/11/20 solution for nebulization lorazepam 1 mg tablet 1 mg PO DAILY PRN #20 tab MDD 1mg 08/11/20 mupirocin 2 % topical ointment 1 applic TOPICAL BID #22 g 08/11/20 nystatin 100,000 unit/gram topical 1 applic TP BID #120 g 09/12/20 powder celecoxib 200 mg capsule 200 mg PO BID #180 tab-cap 10/15/20 metformin 1,000 mg tablet 1,000 mg PO DAILY #90 tab-cap 10/15/20 lisinopril 20 1 tab PO DAILY #90 tab 11/10/20 mg-hydrochlorothiazide 12.5 mg tablet levothyroxine 137 mcg tablet 137 mcg PO DAILY #90 tab 01/05/21 empagliflozin 25 mg tablet 25 mg PO DAILY #90 tab 03/19/21 gabapentin 300 mg capsule 300 mg PO BID #180 cap 06/09/21 omeprazole 20 mg capsule,delayed 20 mg PO DAILY #90 cap 06/09/21 release Allergies Allergy/AdvReac Type Severity Reaction Status Date / Time ampicillin Allergy Intermediate rash Verified 07/31/21 10:25 latex Allergy Mild Skin Rash Verified 07/31/21 10:25 Sulfa (Sulfonamide Allergy Mild Skin Rash Verified 07/31/21 10:25 Antibiotics) carbamazepine AdvReac Mild fever, Verified 07/31/21 10:25 myalgias General Stated Complaint: GenMedical SHIRIN: 3 Review of Systems All systems reviewed & are unremarkable except as noted in HPI and below PFSH Medical History Asthma 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 Rec. 9 month US - ordered Carpal tunnel syndrome right Chest pain (01/01/08) MPI-normal. stress test= nonsystained VT; Cholelithiasis without obstruction PER U/S Chronic back pain (09/15/15) Depressive disorder Diabetes mellitus Erythematous condition granuloma annulare Essential hypertension (07/31/13) Excessive cerumen in right ear canal Fibromyalgia (02/05/15) Foot drop, right Ganglion of tendon sheath right ankle Gastroesophageal reflux disease without esophagitis (02/18/16) HTN (hypertension) Hyperlipidemia Hypothyroidism (09/01/03) Increased body mass index (BMI) LUQ abdominal pain Obesity Obstructive sleep apnea syndrome C-PAP Psoriasis Retinopathy, background, nonproliferative, mild 09/05/15; [facility] 12/29/18; [employer];[facility] Skin lesion right lower leg Skin lesion of left lower limb Skin lesion of neck Surgical History BARIATRIC SURGERY Biopsy of breast (~1994) left breast Colonoscopy - IV Sedation (02/08/11) DR. TIGRE CAREY; NORMAL Colonoscopy - MAC (12/24/16) Hx of gastric bypass (07/04/14) Ligation of fallopian tube (~1983) Open Carpal Tunnel release right Trigger Finger release (~2015) Family History Mother , 62 Heart disease Breast cancer Father , 82 Colon cancer Diabetes Hyperlipidemia Hypertension Sister Substance abuse Depression Hypertension Sister Alcohol abuse Depression Sister No problems noted. Sister Depression Substance abuse Brother Depression Substance abuse Brother , 54 Essential hypertension Bone cancer Hyperlipidemia Hypertension Maternal Grandfather , 80s Leukemia Paternal Grandfather Cancer Heart disease Hyperlipidemia Hypertension Maternal Grandmother , 90s Heart disease Paternal Grandmother , 80s Cervical cancer Son , 28 Asthma Cancer Son No problems noted. Family History Bipolar disorder Leukemia Other Family hx-breast malignancy Social History Smoking/Tobacco Use Status: Former Tobacco Use tobacco type: cigarettes Quit Date: 10/03/82 Tobacco: How many years used: 6 Second Hand Exposure: Yes Smoking risk assessment performed?: Yes Alcohol Intake: current Alcohol Intake frequency: a few times a month Alcohol type: hard liquor Drug use: Never Caregiver/Support person: No Household members: spouse Housing: house Communication Needs: Corrective Lenses Do you need help understanding health information?: Never Pets and animals: Yes Pets and animals: dog(s) Sexually active: No Do you think of yourself as: straight/heterosexual Current gender identity: female What is your relationship status?: How often do you talk on the phone with friends or family?: once per week How often do you get together with friends or relatives?: once per week How often do you attend amish or temple services?: decline to answer Do you belong to any clubs or organized social groups?: no Panel score (0-1 are the most socially isolated patients): 1 What type of physical activity do you participate in: walking Duration: < 15 minutes/day Frequency: 5-6 times per week Fatmata/Yazdanism: Restoration Special fatmata needs: Yes (Last rights) Seatbelt use: always Helmet use: Yes Helmet use: always Drive intox or ride w/intox dedicated intermodal truck driver: No Do you feel safe at home: Yes Do you feel safe in your relationship?: Yes Victim of physical abuse: No Victim of emotional abuse: No Victim of sexual abuse: No Would you like helpful sources: No Exam Narrative Exam Narrative: 1.Const: Well-nourished, Well-developed, appearing stated age 2.Eyes: PERRL, no conjunctival injection, and symmetrical lids. 3.ENT: Atraumatic external nose and ears. Moist MM. Neck: Symmetric, trachea midline, No thyromegaly. 4.CVS: +S1/S2, No murmurs or gallops. Peripheral pulses 2+ and equal in all extremities. Brisk capillary refill in all extremities. 5.RESP: Unlabored respiratory effort. Mild wheezing crackles in the left lung valladares. No rhonchi. 6.GI: Soft, Nontender/Nondistended, No hepatosplenomegaly. No guarding or rebound. 7.MSK: Normocephalic/Atraumatic, Extremities w/o deformity or ttp No cyanosis or clubbing, Normal movement of all extremities, no calf tenderness or swelling or pitting edema. 8.Skin: Warm, Dry. No rashes or lesions. 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 Sensation grossly intact, no focal neurologic deficits. 10.Psych: (AAO) x3. Appropriate mood and affect Course Vital Signs Vital signs: Vital Signs Temperature 36.6 C 07/31/21 10:08 Pulse 64 07/31/21 10:08 Blood Pressure 117/73 07/31/21 10:08 Pulse Oximetry 97 07/31/21 10:08 Temperature 36.6 C 07/31/21 10:08 Temperature Source Temporal Artery Scan 07/31/21 10:08 Pulse 64 07/31/21 10:08 Blood Pressure 117/73 07/31/21 10:08 Pulse Oximetry 97 07/31/21 10:08 Oxygen Delivery Method Room Air 07/31/21 10:08 Oxygen Flow Rate 0 07/31/21 10:08 Pain Level 0 07/31/21 10:08 Lab/Test Results Lab/Test Results: 07/31/21 10:17 Blood Blood Culture - Pending 07/31/21 10:17 Blood Blood Culture - Pending
[2021-07-31 10:35] LABS: Lactate 0.9 mmol/L (0.6-1.4)
[2021-07-31 10:37] LABS: Abs Immature Grans 0.04 10^3/uL (0.0-0.06); Absolute Basophil Count 0.02 10^3/uL (0.0-0.2); Absolute Eosinophil Count 0.02 10^3/uL (0.0-0.7); Absolute Lymphocyte Count 0.73 10^3/uL (1.2-3.4); Absolute Neutrophil Count 4.78 10^3/uL (1.2-6.7); BE (Venous) 3 mmol/L (-2-3); Basophils % 0.3; Eosinophils % 0.3; HCO3 (Venous) 29 mmol/L (23-28); HCT 43.1 % (36.0-46.0); HGB 13.4 g/dL (11.2-15.7); Immature Grans % 0.7; Lymphocytes % 12.2; MCH 27.7 pg (27.0-33.0); MCHC 31.1 % (32.0-36.0); MPV 9.7 fL (8.0-11.0); Monocytes % 6.7; Neutrophils % 79.8; Nucleated RBC 0 %; O2 Sat (Venous) 31 %; Platelet Count 266 10^3/uL (130-400); RBC 4.84 10^6/uL (3.93-5.22); RDW 13.7 % (11.7-14.6); RDW-SD 45.1 fL; TCO2 (Venous) 26 mmol/L (24-29); WBC 5.99 10^3/uL (4.4-10.8); pCO2 (Venous) 51 mmHg (41-51); pH (Venous) 7.36 (7.31-7.41); pO2 (Venous) 20 mmHg
[2021-07-31 10:53] LABS: INR 0.9 (0.9-1.1); PTT Activated 27.5 sec (21.0-27.5); Prothrombin Time 9.5 sec (9.3-11.0)
[2021-07-31 10:56] VITALS: PULSE 64; RESP 1; RESP 20; O2SAT 97
[2021-07-31] MEDS: Albuterol/Ipratropium 3 ML UPD VIAL 6 ML UPD (10:56)
[2021-07-31] MEDS: Normal Saline 500 ML IV (10:57)
[2021-07-31 10:59] LABS: NT-proBNP 113 pg/mL (<300)
[2021-07-31 11:00] LABS: ALT 25 U/L (14-59); AST 24 U/L (15-37); Albumin 3.5 g/dL (3.4-5.0); Alkaline Phosphatase 74 U/L (46-116); Anion Gap 7.2 mmol/L (3-11); BUN 26 mg/dL (7-18); Bilirubin, Total 0.2 mg/dL (0.2-1.0); C-Reactive Protein 4.94 mg/dL (0.0-0.3); CO2 29.8 mmol/L (21.0-32.0); Calcium 9.3 mg/dL (8.5-10.1); Chloride 99 mmol/L (98-107); Estimated GFR 55.82 (mL/min/1.73m2); Glucose 94 mg/dL (74-106); LDH 226 U/L (81-234); Potassium 4.5 mmol/L (3.5-5.1); Sodium 136 mmol/L (136-145); Total Protein 8.4 g/dL (6.4-8.2)
[2021-07-31 11:01] LABS: Troponin I < 0.05 ng/mL (<0.06)
[2021-07-31 11:11] LABS: Procalcitonin < 0.1 ng/mL
[2021-07-31 11:12] LABS: D-Dimer 682 ng/mlFEU (<500)
[2021-07-31 11:25] LABS: Ferritin 94 ng/mL (8-252)
--- NOTE | 2021-07-31 11:30 | DI.CT_ITS ---
Exam(s) CT CHEST PE CTA EXAM: CT CHEST PE CTA CLINICAL HISTORY: sob, COVID +, dimer elevated, eval for PE. TECHNIQUE: Imaging Protocol: Axial CT angiography was performed with multi-slice acquisition and mu lti-planar and/or 3D reconstructions. CONTRAST MATERIAL: Intravenous: Omnipaque 350 Contrast volume:structured data in ml COMPARISON: No exams were available for comparison FINDINGS: CT angiography of the chest was performed with intravenous infusion of 100 cc of Omnipaque 350. There are bilateral predominantly peripheral ground-glass and reticular intrapulmonary infiltrates. Patient is reportedly COVID positive and the findings are consistent with a COVID pneumonia. No pleu ral effusion. Tracheobronchial tree appears intact. No evidence of pulmonary embolic disease. Thoracic aorta is of normal diameter, no thoracic aortic an eurysm or dissection, major branch vessels appear intact. The heart is mildly enlarged. No mediastinal or hilar adenopathy. Images obtained through the upper abdomen show unremarkable appearance of the visualized portions of the liver, spleen, pancreas, adrenals, and kidneys. IMPRESSION: No evidence of pulmonary embolic disease. There is an apparent patchy predominantly peripheral patte rn pulmonary opacities consistent with COVID pneumonia. RADIATION DOSE DELIVERED: 462.71mGy.cm Total DLP 462.71mGy.cm Total DLP 14.92mGy CTDIvol DATA REPOSITORY: All CT scans at this facility are submitted to the National Radiology Data Registry (NRDR) Dose Index Registry (DIR) with the [employer] (A[employer]). RADIATION OPTIMIZATION: All CT scans at this facility use at least one of these dose optimization te chniques: automated exposure control; mA and/or kV adjustment per patient size (includes targeted exa ms where dose is matched to clinical indication); or iterative reconstruction.
--- NOTE | 2021-07-31 11:30 | DI.CT_ITS ---
Exam(s) CT HEAD WO EXAM: CT HEAD WO CLINICAL HISTORY: syncope 2x, covid +. TECHNIQUE: Imaging Protocol: Axial computed tomography images with coronal and sagittal reformatted images were created and reviewed COMPARISON: No exams were available for comparison FINDINGS: There was significant motion artifact which obscures portions of the brain, particularly on inferior portions of the scan. The ventricular system is normal in appearance. No evidence of acute intracranial hemorrhage, mass effect, or midline shift. The orbital structures are unremarkable. The temporal bone structures appear intact. Calvarium: Normal. Visualized Paranasal sinuses/Mastoids: Clear. IMPRESSION: Normal cranial CT, somewhat limited by motion artifact as described above.. RADIATION DOSE DELIVERED: 667.86mGy.cm Total DLP 667.86mGy.cm Total DLP 33.93mGy CTDIvol DATA REPOSITORY: All CT scans at this facility are submitted to the National Radiology Data Registry (NRDR) Dose Index Registry (DIR) with the [employer] (ACR). RADIATION OPTIMIZATION: All CT scans at this facility use at least one of these dose optimization te chniques: automated exposure control; mA and/or kV adjustment per patient size (includes targeted exa ms where dose is matched to clinical indication); or iterative reconstruction.
[2021-07-31 11:52] LABS: COVID-19 PCR POSITIVE (Negative)
[2021-07-31] MEDS: Omnipaque 350 MG/ML 100 ML BTL IV (12:55)
[2021-07-31 13:04] VITALS: RESP 18
[2021-07-31 13:40] VITALS: BP 117/73; PULSE 64; RESP 18; TEMP 36.6; O2SAT 97
== END 2021-07-31 13:44 | disposition home or self-care (01) ==
PROVIDERS: Emergency Provider Student in an Organized Health Care Education/Training Program
DX: U07.1 COVID-19 (principal); J12.82 Pneumonia due to coronavirus disease 2019; R55 Syncope and collapse; R07.9 Chest pain, unspecified; R53.81 Other malaise; Z20.822 Contact with and (suspected) exposure to COVID-19; R79.1 Abnormal coagulation profile; R06.02 Shortness of breath; E11.9 Type 2 diabetes mellitus without complications
CPT/HCPCS: 36415; 71275; 80053; 82805; 84145; 87040; 87449; 87635; 93005; 94640; 96360; 96365; 99285; 70450; 81003; 82728; 83605; 83615; 83880; 84484; 85025; 85379; 85610; 85730; 86140; 93010; J3490; J7620

== ENCOUNTER 2021-10-01 03:24 | Outpatient (CLI) | payer MEDICARE, OTHER, SELFPAY ==
[2021-10-01 12:24] LABS: Hemoglobin A1C 10.4 % (<5.7)
[2021-10-01 13:43] LABS: ALT 28 U/L (14-59); AST 16 U/L (15-37); Albumin 3.9 g/dL (3.4-5.0); Alkaline Phosphatase 76 U/L (46-116); Anion Gap 6.7 mmol/L (3-11); BUN 32 mg/dL (7-18); Bilirubin, Total 0.3 mg/dL (0.2-1.0); CO2 31.3 mmol/L (21.0-32.0); CREATININE 1.2 mg/dL (0.55-1.02); Calcium 9.1 mg/dL (8.5-10.1); Chloride 97 mmol/L (98-107); Estimated GFR 45.09 (mL/min/1.73m2); Glucose 261 mg/dL (74-106); Potassium 4.3 mmol/L (3.5-5.1); Sodium 135 mmol/L (136-145); TSH (W/Ref FT4) 0.32 uIU/mL (0.36-3.74); Total Protein 7.3 g/dL (6.4-8.2)
[2021-10-01 14:00] LABS: FREE T4 1.34 ng/dL (0.76-1.46)
[2021-10-02 11:21] LABS: HBs Antibody, Quant <3.1 mIU/mL (See Note); Hep B Surface Ab Negative (See Note); Hepatitis B Core Antibody Negative (Negative); Hepatitis B Surface Antigen Negative (Negative)
[2021-10-02 11:36] LABS: Hepatitis C Ab w Rflx HCV PCR Negative (Negative)
== END 2021-10-01 03:25 | disposition home or self-care (01) ==
LOC: LBO 03:24
DX: Z11.59 Encounter for screening for other viral diseases (principal); Z00.00 Encounter for general adult medical examination without abnormal findings; E03.9 Hypothyroidism, unspecified; E11.65 Type 2 diabetes mellitus with hyperglycemia; Z79.4 Long term (current) use of insulin; B19.20 Unspecified viral hepatitis C without hepatic coma; Z72.51 High risk heterosexual behavior
CPT/HCPCS: 36415; 80053; 86704; 86706; 86803; 87340; 83036; 84439; 84443

== ENCOUNTER 2021-10-05 12:20 | Outpatient (REF) | payer MEDICARE, SELFPAY ==
--- NOTE | 2021-10-05 10:45 | PAPFT_PTH ---
PATIENT: Karly Edwards LOC: [facility] U#:[id number] AGE/SX: 66/F ROOM: RE10/05/[address]: Aylin Gallego APRN : 1955 BED: DIS: 10/05/2021 SPEC #: [id number] RECD: 10/06/21 12:56 STATUS: ARELY REJose #: [id number] MCKENZIE: 10/05/21 10:[address]: Aylin Gallego DEPT: [facility] Cytology RECD BY: Analy Sosa Tissues: 1 - CX/ENDOCX FOR PAP SMEARS Procedures: PAP THIN PREP/UVM Screening HPV DNA PROBE Comments: [id number]
== END 2021-10-05 12:21 | disposition home or self-care (01) ==
LOC: LBN 12:20
DX: Z01.419 Encounter for gynecological examination (general) (routine) without abnormal findings (principal); Z11.51 Encounter for screening for human papillomavirus (HPV); Z12.4 Encounter for screening for malignant neoplasm of cervix
CPT/HCPCS: 88142; 87624

== ENCOUNTER 2021-10-16 13:26 | Outpatient (CLI) | payer MEDICARE, SELFPAY ==
--- NOTE | 2021-10-16 13:00 | NS.NUTBLAN_ITS ---
Karly was referred for diabetes self management education. She brings with her a adan 2 continuous glucose monitor. Most recent A1C: 10.4%. DM meds: 25 mg jardiance, 1000 mg metforman, 50 u tresiba. 2014 gastric bypass 2017? revision. 200 lbs, weight 2 years ago 180 lbs. current BMI 33. Reports she is an emotional eater and covid has increased her intake of simple carbs. She stopped taking her metformin for several weeks. Does not want meal time insulin as it causes weight gain. Diet Recall: eggs, sausage and toast, sandwich, roll of ritz crackers and cheese, banana. Snacks at night: popcorn, juice. Karly is very down on herself today as she feels like she has failed weight loss surgery and diabetes. Session today focused on her healthy habits and how she can increase her ability to control her blood sugars with a continuous glucose monitor with alarms. Instructed Karly how to place adan 2 sensor and program her reader. Reviewed carb counting and how to follow 80-100 g carbs daily with increase intake of non starchy vegetables, lean protein and healthy fats. Karly reports able to lose 40 lbs with keto diet in past. Reviewed a less restrictive diet with be more sustainable. Encouraged daily walking of 1 mile. Provided information on strategies for hypo and hyper glycemia. Karly reports feeling fine when her sugars are > 300 mg/dl. Reviewed importance of hydration and hyperglycemia and getting blood sugars in control. Suspect CGM will help her avoid hyperglycemic events. She continues to report having hypo glycemia awareness, CGM will alert her if she trends down too low. May benefit from a GLP 1ra as will help with emotional eating and blood sugar control. Follow up scheduled for 10/29/21 at 10 am for data down load.
== END 2021-10-16 13:27 | disposition home or self-care (01) ==
LOC: DS 13:46
PROVIDERS: Visit Provider Dietitian, Registered
DX: E11.9 Type 2 diabetes mellitus without complications (principal); Z71.3 Dietary counseling and surveillance; Z79.84 Long term (current) use of oral hypoglycemic drugs
CPT/HCPCS: 97802

== ENCOUNTER 2021-11-03 10:25 | Outpatient (CLI) | payer MEDICARE, SELFPAY ==
--- NOTE | 2021-11-03 10:00 | NS.NUTBLAN_ITS ---
Karly returns for diabetes self management education and data down load from Oscar 2 Continuous Glucose Monitor. DM meds: has stopped metformin, 40 units Tresiba, 25 mg Jardiance. Karly reports having several hypoglycemic events in last 2 weeks between 3-5 am. Her PCP told her to reduce metformin to 500 mg q HS, she has stopped it all together. Since stopping metformin, has not had any hypoglycemia events. Diet Recall: eggs, [place], toast, egg salad, meat, vegetables Exercise: none yet Wt: 195 lbs Ambulatory Glucose Profile 10/21/21-11/03/21 Average Blood Sugar: 127 mg/dl Glucose Management Indicator: 6.3% (predicted A1C) Glucose Variability: 28.5% Time in Range (70-180 mg/dl): 93% 181-250 mg/dl: 4% >250 mg/dl: 1% 54-69 mg/dl: 2% <54 mg/dl: none Overall meeting/exceeding all glycemic goals for optimal blood sugar management with 40 units tresiba and 25 mg Jardiance. Has lost 5 lbs in last 14 days. Karly is pleased with CGM as it helps her stay on track and identifies foods that cause glycemic excursions. Karly is excited about losing weight, most likely attributed to decrease in insulin (down 10 units) and change in diet. Following lower carb intake with goal of keeping carbs <60 grams per day. May be able to decrease her long acting insulin further per PCP recommendations. Follow up appt. scheduled for 12/10/21 at 10 am.
== END 2021-11-03 10:26 | disposition home or self-care (01) ==
LOC: DS 10:27
PROVIDERS: Visit Provider Dietitian, Registered
DX: E11.649 Type 2 diabetes mellitus with hypoglycemia without coma (principal); Z71.3 Dietary counseling and surveillance; Z79.899 Other long term (current) drug therapy
CPT/HCPCS: 97803

== ENCOUNTER 2021-12-10 09:54 | Outpatient (CLI) | payer MEDICARE, SELFPAY ==
--- NOTE | 2021-12-10 10:00 | NS.NUTBLAN_ITS ---
Karly returns for diabetes self management education. She has been using her Libre2 continuous glucose monitor with great success since October 2021. Most recent A1C: 10%. Hx of Gastric Bypass 2013, Revision 2017. Highest weight 262 lbs, lowest weight 180 lbs with regain to 200 lbs. Weight today: 183 lbs. Down 17 lbs in last 6 weeks. 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 Ambulatory Glucose Profile (11/27/21 to 12/10/21) Average Blood Sugar: 141 mg/dl Glucose Management Indicator: 6.7% Glucose Variability: 27.8% Time in Range (70-180): 85% Below 70 mg/dl: none 180-250 mg/dl: 14% > 250 mg/dl: none Karly continues to lose weight and optimally manage her diabetes with reduced reliance on medication and increased focus on meeting macronutrient needs through out day. She is very encouraged that her life style changes are working. Encouraged her to continue with current meal plan and to adjust medications per PCP to avoid hypoglycemia/hyperglycemia. Follow up appt. scheduled for 01/05/22 at 10 am
== END 2021-12-10 09:55 | disposition home or self-care (01) ==
LOC: NCHCN 10:00
PROVIDERS: Visit Provider Dietitian, Registered
DX: E11.9 Type 2 diabetes mellitus without complications (principal); Z79.84 Long term (current) use of oral hypoglycemic drugs; Z71.3 Dietary counseling and surveillance
CPT/HCPCS: 97803

== ENCOUNTER 2022-01-05 05:13 | Outpatient (CLI) | payer MEDICARE, SELFPAY ==
--- NOTE | 2022-01-05 10:00 | NS.NUTBLAN_ITS ---
Karly returns for diabetes self management education and continuous glucose monitor data retrieval. Wt: 179.5, down 21 lbs in last 10 weeks, DM meds: 25 units Tresiba HS, 25 mg Jardiance. 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 Average Blood sugar (01/05/22 - 12/23/21): 137 mg/dl Time in Range (70-180): 86% of time 180-244 mg/dl: 13% of time No values <50 or above 250 mg/dl Excellent glycemic management with current life style changes and medications. If continues to lose more weight, will need to adjust basal insulin to avoid hypoglycemia. Karly reports she is now down to her lowest weight since gastric bypass and revision. Very pleased with results. Have faxed CGM data to [facility] today. Follow up 04/22/22 at 10 am.
== END 2022-01-05 05:14 | disposition home or self-care (01) ==
PROVIDERS: Visit Provider Dietitian, Registered
DX: E11.9 Type 2 diabetes mellitus without complications (principal); Z79.4 Long term (current) use of insulin; Z71.3 Dietary counseling and surveillance
CPT/HCPCS: 97803

== ENCOUNTER → 2022-03-08 02:31 | Outpatient (CLI) | payer MEDICARE, SELFPAY ==
--- NOTE | 2022-03-08 07:15 | DI.MAMMO_ITS ---
Exam(s) MAMMO SCREENING EXAM: MAMMO SCREENING CLINICAL HISTORY: screening,Z12.39 TECHNIQUE: Mammograms were interpreted according to the usual protocol including computer analysis w [employer] SuperTurbo CAD system, tomosynthesis and C-view imaging. COMPARISON: 2011 through 2020 FINDINGS: The breasts are composed of mainly fatty density , Breast Density category A. No suspicious masses or suspicious microcalcifications are seen. No skin thickening or abnormal axillary lymph nodes are seen. There has been no significant change from prior exams. IMPRESSION: BI-RADS Category 1, Negative mammogram Yearly screening mammography is recommended. Breast Density - Category A, fatty density. A negative radiographic report should not delay biopsy if a dominant or clinically suspicious mass is present. Up to ten percent of cancers are not identified on mammography. A negative report may reinforce clinical impression. Adenosis and dense breasts may obscure an underlying neoplasm. False positive reports average 6 to 10%. Patient will receive a letter notifying them of these results.
== END ==
DX: Z12.31 Encounter for screening mammogram for malignant neoplasm of breast (principal)
CPT/HCPCS: 77063; 77067

== ENCOUNTER 2022-04-12 03:32 | Outpatient (CLI) | payer MEDICARE, SELFPAY | END 2022-04-12 03:33 | disposition home or self-care (01) | LOC: LOS 03:32 ==

== ENCOUNTER 2022-06-28 02:37 | Outpatient (CLI) | payer MEDICARE, SELFPAY ==
[2022-06-28 12:51] LABS: Anion Gap 7.7 mmol/L (3-11); BUN 30 mg/dL (7-18); CO2 31.3 mmol/L (21.0-32.0); Calcium 9.6 mg/dL (8.5-10.1); Chloride 101 mmol/L (98-107); Estimated GFR 62.52 (mL/min/1.73m2); Glucose 133 mg/dL (74-106); Potassium 4.3 mmol/L (3.5-5.1); Sodium 140 mmol/L (136-145); TSH (W/Ref FT4) 0.14 uIU/mL (0.36-3.74)
[2022-06-28 13:37] LABS: FREE T4 1.33 ng/dL (0.76-1.46)
== END 2022-06-28 02:38 | disposition home or self-care (01) ==
LOC: LOS 02:37
DX: E03.9 Hypothyroidism, unspecified (principal); I10 Essential (primary) hypertension; N28.9 Disorder of kidney and ureter, unspecified
CPT/HCPCS: 36415; 80048; 84439; 84443

== ENCOUNTER → 2022-07-20 07:12 | Outpatient (BNVA) | payer MEDICARE, SELFPAY | PROVIDERS: PCP Nurse Practitioner Family; Referring Provider Nurse Practitioner Family; Visit Provider Surgery | DX: Z12.11 Encounter for screening for malignant neoplasm of colon (principal) ==

== ENCOUNTER 2022-07-26 07:27 | Day surgery (SDC) | payer MEDICARE, SELFPAY ==
--- NOTE | 2022-07-26 06:34 | W.COLOREPORT ---
Date of service: 07/26/22 Time of Service: 09:03 Colonoscopy Report Date of procedure: 07/26/22 Pre-op diagnosis general: Colon Cancer Screening and Family history Post-op diagnosis procedure note: same Procedure: Colonoscopy Surgeon: Minal Fonseca Anesthesia Type: General:No Airway Estimated blood loss (mL): 0 Pathology: none sent Complications: None Disposition: same day Indications: The patient? is a pleasant? 66 -year-old female who is here to discuss another screening colonoscopy. ? Her last colonoscopy was 5 years ago and was normal. She denies any changes in bowel habits, melena, hematochezia, unintentional weight loss. She does have a family history of colon cancer in her father and brother both in their early 50s.? The procedure and risks were discussed.? The prep was reviewed in detail.? Risks, benefits and complications have been reviewed. Complications include but are not limited to bleeding, pain, perforation, missed small lesion/polyp, sore throat, aspiration and adverse reaction to the medications. Questions were entertained and answered to their satisfaction and they wished to proceed. No guarantees were given or implied. Prep: Miralax/Dulcolax Procedure Start Time: :03 Procedure End Time: :29 Retraction Time: 15 minutes Findings: Normal colon Procedure Description: After informed consent was obtained the patient was taken to the procedure room and placed in a left decubitous position. Monitors were applied and a time out was done. The patients name, date of , procedure, allergies to medications and metal in their body was reviewed. The patient was then sedated. Once sedated and comfortable a rectal exam was done. External exam was normal. Internal exam revealed a normal sphincter tone and no palpable masses. The scope was then introduced and retro-flexed. No internal hemorrhoids, polyps or masses were identified on retro-flexion. The scope was then advanced to the cecum without difficulty. The ileocecal vlave and appendiceal orifice were identified. The prep was adequate. The scope was then slowly retracted over 15 minutes back into the rectum. There were no Polyps and there was no diverticulosis noted. The scope was removed and the patient was woken up and taken back to Same day surgery in stable condition. The patient tolerated the procedure well and there were no immediate complications.
--- NOTE | 2022-07-26 06:36 | PDOC.DSDIS_ITS ---
Date of service: 07/26/22 Time of Service: 09:33 Discharge Plan Disposition Patient Disposition: HOME Condition: Good Discharge Details Reason For Visit: Colonoscopy Attending Provider: Minal Fonseca Primary Care Provider: None,None Home Meds and New Rx's Prescriptions: Continued potassium gluconate 595 mg (99 mg) tablet 595 mg PO DAILY aspirin [Adult Aspirin Regimen] 81 mg tablet,delayed release (DR/EC) 81 mg PO DAILY lorazepam 0.5 mg tablet 0.5 mg PO ONCE PRN (Reason: anxiety) Qty: 1 0RF Rx Instructions: Take the morning of your procedure with a sip of water mupirocin 2 % ointment 1 applic topical BID Qty: 22 0RF Rx Instructions: Apply to lower leg lesion BID lorazepam 1 mg tablet 1 mg PO DAILY MDD 1mg PRN (Reason: anxiety) Qty: 20 0RF (DME) FreeStyle Oscar 2 [place] Misc See Rx Instructions .ROUTE .MEDSUPPLY Qty: 1 0RF Rx Instructions: As directed Tresiba FlexTouch U-100 100 unit/mL (3 mL) insulin pen 10 - 50 unit SC DAILY Qty: 15 12RF (DME) pen needle, diabetic 1 EACH needle 6 ea Sub-Q DAILY Qty: 100 Rx Instructions: Dx code E11.65 acetaminophen 500 MG tablet 1,000 mg PO Q6H PRN Qty: 100 magnesium oxide 400 MG tablet 2 tab PO DAILY levalbuterol tartrate [Xopenex HFA] 45 mcg/actuation HFA aerosol inhaler 2 puff Inhalation QID PRN Qty: 3 3RF albuterol sulfate 2.5 mg /3 mL (0.083 %) solution for nebulization 2.5 mg inhalation TID-QID MDD 12ml PRN (Reason: bronchospasm- Covid 19 Pneumonia: U07.1; J12.82) Qty: 180 2RF Rx Instructions: via nebulizer fluticasone propionate 50 mcg/actuation spray,suspension 50 mcg NS BID PRN (Reason: nasal congestion) Qty: 16 2RF omeprazole 20 mg capsule,delayed release(DR/EC) 20 mg PO DAILY Qty: 90 3RF (DME) pen needle, diabetic [BD Ultra-Fine Mini Pen Needle] 31 gauge x 3/16 needle See Rx Instructions .ROUTE .MEDSUPPLY Qty: 100 3RF Rx Instructions: Insulin administration QD : Dx.E11.9 (DME) FreeStyle Oscar 2 Sensor Kit See Rx Instructions .ROUTE .MEDSUPPLY Qty: 7 4RF Rx Instructions: As directed duloxetine 30 mg capsule,delayed release(DR/EC) 30 mg PO As Directed Qty: 270 4RF Rx Instructions: two in the AM and one in PM lisinopril-hydrochlorothiazide 20-12.5 mg tablet 1 tab PO DAILY Qty: 90 3RF nystatin 100,000 unit/gram powder 1 applic TP BID Qty: 120 3RF celecoxib [Celebrex] 200 mg capsule 200 mg PO BID Qty: 180 3RF Jardiance 25 mg tablet 25 mg PO DAILY Qty: 90 3RF Rx Instructions: 25mg (1 Tab) daily. gabapentin 300 mg capsule 300 mg PO BID Qty: 180 3RF levothyroxine 125 mcg tablet 125 mcg PO DAILY Qty: 90 0RF Discontinued bisacodyl [Dulcolax (bisacodyl)] 5 mg tablet,delayed release (DR/EC) 5 mg PO ONCE Qty: 4 0RF Rx Instructions: Take according to provider's instructions for colonoscopy prep. polyethylene glycol 3350 17 gram/dose powder 17 g PO ONCE Qty: 238 0RF Rx Instructions: To be taken as directed by prescriber's office for colonoscopy prep. Discharge Instructions Additional Instructions: Findings: Normal Follow up: 5 years Please call if you develop: fevers >101.5 Nausea or Vomiting Abdominal pain that is not transient Rectal bleeding that is more then a tbsp A hard abdomen and inability to pass gas DAY SURGERY UNIT POST ENDOSCOPY INSTRUCTIONS Instructions for everyone who is given Anesthesia: For your safety, please do the following for the next 24 Hours: a. Do not drive or operate dangerous equipment b. Do not drink alcohol beverages or use any recreational drugs for the first 24 hours or while taking pain medications. The medications in your body may have a reaction that can be dangerous. c. Do not make any important decisions or sign any important papers 1. Generally there are no restrictions on your activity after a day or so has gone by, but you may feel a bit fatigued for a few days. 2. After you arrive home you may have a light meal and return to a normal diet as you can tolerate it without feeling sick to your stomach. 3. After surgery, you may feel pain or discomfort. This should be only transient, but if it persists please contact your doctor. 4. If there are any questions regarding the findings of your procedure, please feel free to contact your doctor. 6. If you are unable to contact your doctor with a problem, contact the hospital at [phone]. 7. Continue all your regular medications unless directed otherwise. I understand the above instructions and have no questions. Signature of Patient or Responsible Adult Escort Date/Time Name of Responsible Adult Escort Signature of Nurse Date/Time Activity:: Activity as Tolerated Diet:: As Tolerated Discharge Orders Discharge Orders: Discharge Order (Routine); Ordered 07/26/22 Ordered By: Minal Fonseca
[2022-07-26 07:57] VITALS: BP 129/64; PULSE 60; RESP 16; TEMP 36.7; O2SAT 99
[2022-07-26] MEDS: Lactated Ringers 1,000 ML 80 ML IV (08:12)
--- NOTE | 2022-07-26 08:13 | W.ANESPRE ---
General Info Date of Service Date Performed: 07/26/22 Height: 5 ft 4.5 in Weight: 83.1 kg Body Mass Index (BMI): 30.9 Surgical Procedure: Operation Date: 07/26/22 09:20 Proposed Procedure Side Surgeon alison Fonseca MD Meds Allergies and Home Medications Allergies Allergy/AdvReac Type Severity Reaction Status Date / Time ampicillin Allergy Intermediate rash Verified 07/26/22 07:56 latex Allergy Mild Skin Rash Verified 07/26/22 07:56 Sulfa (Sulfonamide Allergy Mild Skin Rash Verified 07/26/22 07:56 Antibiotics) carbamazepine AdvReac Mild fever, Verified 07/26/22 07:56 myalgias Home Medication Medication Instructions Recorded pen needle, diabetic 31 gauge x ##100 12/27/1610/05 acetaminophen 500 mg tablet 1,000 mg PO Q6H PRN #100 tab-caps 05/17/17 magnesium oxide 400 mg (241.3 mg 2 tab PO DAILY 11/03/17 magnesium) tablet potassium gluconate 595 mg (99 mg) 595 mg PO DAILY 05/03/19 tablet levalbuterol tartrate 45 2 puff inhalation QID PRN #3 07/10/20 mcg/actuation aerosol inhaler inhalations (Xopenex HFA) mupirocin 2 % topical ointment 1 applic topical BID #22 grams 08/11/20 albuterol sulfate 2.5 mg/3 mL 2.5 mg (3 mL) inhalation TID-QID 08/07/21 (0.083 %) solution for nebulization PRN bronchospasm- Covid 19 Pneumonia: U07.1; J12.82 #180 mL fluticasone propionate 50 50 mcg NS BID PRN nasal congestion 08/10/21 mcg/actuation nasal #16 grams spray,suspension insulin degludec 100 unit/mL (3 10 - 50 unit (0.1 - 0.5 mL) subcut 08/18/21 mL) subcutaneous pen (Tresiba DAILY Dx - E11.9 #15 mL FlexTouch U-100 insulin) flash glucose scanning reader #1 ea 10/05/21 (FreeStyle Oscar 2 [place]) lorazepam 1 mg tablet 1 mg PO DAILY PRN anxiety #20 tabs 10/05/21 omeprazole 20 mg capsule,delayed 20 mg PO DAILY GERD #90 caps 10/09/21 release pen needle, diabetic 31 gauge x #100 ea 10/09/21 3/16 (BD Ultra-Fine Mini Pen Needle) flash glucose sensor (FreeStyle #7 ea 10/23/21 Oscar 2 Sensor kit) duloxetine 30 mg capsule,delayed 30 mg PO As Directed #270 tab-caps 10/30/21 release lisinopril 20 1 tab PO DAILY #90 tabs 10/30/21 mg-hydrochlorothiazide 12.5 mg tablet nystatin 100,000 unit/gram topical 1 applic topical BID #120 grams 10/30/21 powder celecoxib 200 mg capsule (Celebrex) 200 mg PO BID #180 tab-caps 11/16/21 empagliflozin 25 mg tablet 25 mg PO DAILY #90 tabs 02/22/22 (Jardiance) gabapentin 300 mg capsule 300 mg PO BID #180 caps 05/19/22 levothyroxine 125 mcg tablet 125 mcg PO DAILY #90 tabs 06/28/22 aspirin 81 mg tablet,delayed 81 mg PO DAILY 07/20/22 release (Adult Aspirin Regimen) bisacodyl 5 mg tablet,delayed 5 mg PO ONCE #4 tabs 07/20/22 release (Dulcolax (bisacodyl)) lorazepam 0.5 mg tablet 0.5 mg PO ONCE PRN anxiety #1 tab 07/20/22 polyethylene glycol 3350 17 17 g PO ONCE #238 grams 07/20/22 gram/dose oral powder Current Visit Medications: Current Medications Generic Name Dose Route Start Last Admin Trade Name Freq PRN Reason Stop Dose Admin Hyoscyamine Sulfate 0.125 mg 07/26/22 06:36 Hyoscyamine 0.125 Mg Sl/Oral/Chew SL DIRECTED PRN Ringer's Solution 1,000 mls @ 80 mls/hr 07/26/22 06:00 07/26/22 08:12 IV 08/22/22 23:59 80 mls/hr INFUSION RADHA Administration IV Miscellaneous Supplies 1 each 07/26/22 06:00 Iv Access IV 08/22/22 23:59 DIRECTED RADHA Ondansetron HCl 4 mg 07/26/22 06:36 Ondansetron 4 Mg/2 Ml Vial IVP Q4H PRN PRN Nausea / Vomiting Sodium Chloride 0 ml 07/26/22 06:00 Normal Saline Flush 10 Ml Syr IV 08/22/22 23:59 PRN PRN Sodium Chloride 0 ml 07/26/22 06:00 Normal Saline 10 Ml Vial IJ 08/22/22 23:59 DIRECTED PRN Sterile Water 0 ml 07/26/22 06:00 Water,Injection,Sterile 10 Ml Vial IJ 08/22/22 23:59 DIRECTED PRN PFSH Active Problems Active Problems: Problem Status Onset Code Chronic back pain 09/15/15 M54.9, G89.29 Depressive disorder F32.9 Erythematous condition L53.9 Essential hypertension 07/31/13 I10 Family hx-breast malignancy Z80.3 Fibromyalgia 02/05/15 M79.7 Gastroesophageal reflux disease without esophagitis 02/18/16 K21.9 Hyperlipidemia E78.5 Hypothyroidism 09/01/03 E03.9 Obesity E66.9 Obstructive sleep apnea syndrome G47.33 Psoriasis L40.9 Retinopathy, background, nonproliferative, 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 stress test= nonsystained VT; Cholelithiasis without obstruction PER U/S COVID-19 Foot drop, right Ganglion of tendon sheath right ankle LUQ abdominal pain Skin lesion right lower leg Skin lesion of neck Surgical History Surgical History BARIATRIC SURGERY 07/04/2014 Biopsy of breast (~1994) left breast Colonoscopy - IV Sedation (02/08/11) DR. TIGRE CAREY; NORMAL Colonoscopy - MAC (12/24/16) Ligation of fallopian tube (~1983) Open Carpal Tunnel release right Trigger Finger release (~2015) Tobacco Smoking/Tobacco Use Status: Former Tobacco Use Passive smoking exposure: Yes Second hand exposure: Yes Alcohol Alcohol Intake: current Alcohol intake frequency: a few times a month Alcohol type: hard liquor Substance Use Substance use: Never Substance use type: does not use Vital Signs and Lab Results Vital Signs Most Recent Vital Signs in EMR: Most Recent Vital Signs Temp Pulse Resp BP Pulse Ox 36.7 C 60 16 129/64 99 07/26/22 07:57 07/26/22 07:57 07/26/22 07:57 07/26/22 07:57 07/26/22 07:57 Lab Results Blood Type / Crossmatch: No Data to Display Complete Blood Count: No Data to Display Complete Metabolic Panel: Sodium 140 mmol/L (136-145) 06/28/22 08:22 Potassium 4.3 mmol/L (3.5-5.1) 06/28/22 08:22 Chloride 101 mmol/L (98-107) 06/28/22 08:22 Carbon Dioxide 31.3 mmol/L (21.0-32.0) 06/28/22 08:22 BUN 30 mg/dL (7-18) H 06/28/22 08:22 Creatinine 1.0 mg/dL (0.55-1.02) 06/28/22 08:22 Est GFR (CKD-EPI 2020) 62.52 (mL/min/1.73m2) 06/28/22 08:22 Calcium 9.6 mg/dL (8.5-10.1) 06/28/22 08:22 Glucose 133 mg/dL (74-106) H 06/28/22 08:22 Liver Function Panel: No Data to Display Coagulation Panel: No Data to Display Cardiac Panel: No Data to Display Arterial Blood Gas: No Data to Display Venous Blood Gas: No Data to Display Pancreas Panel: No Data to Display Thyroid Panel: Thyroid Stimulating Hormone (TSH) 0.14 uIU/mL (0.36-3.74) L 06/28/22 08:22 Infectious Disease: No Data to Display Blood Cultures: No Data to Display Toxicology Panel: No Data to Display Imaging and Studies Imaging and Studies Study information below may be from another EMR and interpreted by another provider. Please see original notes in EMR for more complete details. EKG Summary: DATE/TIME OF SERVICE: 07/31/21 1022 : 1955PERFORMING LOCATION: ER APPROVED REPORT Exam: Resting ECG Reason for Exam: syncope Patient Location: E HR:62 bpm ECG Measurements Heart Rate 62 AXIS OK 150 P 59 QRSd 90 QRS 18 QT 428 T28 QTc 435 Conclusion Sinus rhythm...normal P axis, V-rate 60- 99 Low voltage, precordial leads...precordial leads <1.0mV Stress Test Summary: Low dose, non-diagnostic CT used for attenuation correction only. EJECTION FRACTION: 57 % EDV: 76 ml ESV: 33 ml CONCLUSION: Negative for ischemia Anesthesia Assessment and Plan Anesthesia History Personal History: No History of Anesthesia Complications Family History: No Family History of Anesthesia Complications Exercise Tolerance Exercise Tolerance: Metabolic Equivalents>4 Pertinent Negatives Pertinent Negatives: No Symptoms of GERD Cardiac & Pulmonary Exam Cardiac Exam: Normal S1/S2 Heart Sounds Pulmonary Exam: Clear Bilateral Breath Sounds Implantable Cardiac Device Does patient have a Pacemaker or an ICD?: No Airway Exam Known Difficult Airway: No Mallampati Class: 2 Mouth Opening: Normal (> 3cm) Thyromental Distance: Less than 3 cm Neck Range of Motion: Full ROM Neck Circumference: Normal Teeth Condition: Edentulous ASA Classification ASA Score: ASA 3 Emergency Case?: No NPO Status NPO Status: NPO Clears >2 hours, Solids >8 hours Anesthesia Plan Resuscitation Status: Full Code Anesthesia Technique: General Anesthesia Airway Planned: Natural Airway Monitors Used: Standard Monitors
[2022-07-26 08:19] VITALS: BMI 30.9
[2022-07-26 09:34] VITALS: BP 113/61; PULSE 55; RESP 18; TEMP 36.5; O2SAT 98
--- NOTE | 2022-07-26 09:40 | W.ANESPOSTOP ---
Postoperative Evaluation Date, Time and Location Date Performed: 07/26/22 Time Performed: 09:41 Patient Location: Day Surgery Unit Vital Signs Most Recent Imported Vital Signs: Most Recent Vital Signs Temp Pulse Resp BP Pulse Ox 36.5 C 55 L 18 113/61 98 07/26/22 09:34 07/26/22 09:34 07/26/22 09:34 07/26/22 09:34 07/26/22 09:34 Assessment Mental Status: Awake (Alert & Oriented to Patient Baseline) Airway and Respiratory Function: Patent airway with normal (patient baseline) respiratory exam Cardiovascular Function: Hemodynamically Stable Hydration Status: Adequately Hydrated Nausea & Vomiting: No Nausea or Vomiting Pain: Pt. Denies Any Pain Peripheral Nerve Block: Patient did not receive a nerve block
[2022-07-26 09:56] VITALS: BP 157/64; PULSE 59; RESP 18; TEMP 36.3; O2SAT 97
== END 2022-07-26 10:09 | disposition home or self-care (01) ==
PROVIDERS: Visit Provider Surgery
PROC: 0DJD8ZZ Inspection of Lower Intestinal Tract, Via Natural or Artificial Opening Endoscopic (ICD-10-PCS; CPT 45378; principal; 2022-07-26 09:15)
DX: Z12.11 Encounter for screening for malignant neoplasm of colon (principal); Z80.0 Family history of malignant neoplasm of digestive organs; E11.22 Type 2 diabetes mellitus with diabetic chronic kidney disease; Z79.4 Long term (current) use of insulin
CPT/HCPCS: G0105

== ENCOUNTER 2022-12-22 03:29 | Outpatient (CLI) | payer MEDICARE, SELFPAY ==
[2022-12-22 13:00] LABS: ALT 28 U/L (14-59); AST 21 U/L (15-37); Albumin 3.6 g/dL (3.4-5.0); Alkaline Phosphatase 75 U/L (46-116); Anion Gap 7.3 mmol/L (3-11); BUN 35 mg/dL (7-18); Bilirubin, Total 0.2 mg/dL (0.2-1.0); CO2 30.7 mmol/L (21.0-32.0); CREATININE 1.3 mg/dL (0.55-1.02); Calcium 9.3 mg/dL (8.5-10.1); Calculated LDL 63 mg/dL (<100); Chloride 101 mmol/L (98-107); Cholesterol 139 mg/dL (<200); Estimated GFR 45.35 (mL/min/1.73m2); Glucose 220 mg/dL (74-106); HDL Cholesterol 58 mg/dL (40-60); Potassium 4.6 mmol/L (3.5-5.1); Sodium 139 mmol/L (136-145); TSH (W/Ref FT4) 2.11 uIU/mL (0.36-3.74); Total Protein 7.2 g/dL (6.4-8.2); Triglyceride 91 mg/dL (<150)
== END 2022-12-22 03:30 | disposition home or self-care (01) ==
LOC: LOS 03:29
PROVIDERS: PCP Nurse Practitioner Family; Visit Provider Nurse Practitioner Family
DX: E78.5 Hyperlipidemia, unspecified (principal); E03.9 Hypothyroidism, unspecified
CPT/HCPCS: 36415; 80053; 80061; 84443

== ENCOUNTER 2023-01-28 00:39 | Outpatient (CLI) | payer MEDICARE, SELFPAY ==
--- NOTE | 2023-01-28 15:05 | DI.MRI_ITS ---
Exam(s) MR LUMBAR SPINE WO EXAM: MR LUMBAR SPINE WO CLINICAL HISTORY: continued numbness despite PT,CHRONIC BACK PAIN, M54.9. TECHNIQUE: Multiplanar multisequence MRI of the Lumbar spine was performed. COMPARISON: CR XR CHEST 2V PA LATERAL from 11/10/2018 MR MR LUMBAR SPINE WO from 07/26/[address] CHEST PE CTA from 07/31/2021 FINDINGS: Bones: The last intervertebral disc space is designated the L5/S1 level for the numbering purpose of this examination. The vertebral body heights are well maintained. Alignment is satisfactory. Signif icant red marrow reconversion. Similar to prior exam. Cord: The conus tip ends at the T12 level. It is of normal size and signal intensity. T12-L1: No disc herniations or bulges are present. No central spinal canal or neural foraminal stenos is. L1-2: No disc herniations or bulges are present. No central spinal canal or neural foraminal stenosis . L2-3: No disc herniations or bulges are present. No central spinal canal or neural foraminal stenosis . L3-4: No disc herniations or bulges are present. No central spinal canal or neural foraminal stenosis . L4-5: Broad-based disc bulging is again noted. The findings are more prominent toward the right. Th ere are facet degenerative changes and ligamentous hypertrophy which combine to produce a moderate to severe central canal stenosis as well as severe right neural foraminal narrowing. Findings have pro gressed somewhat since the previous exam. L5-S1: No disc herniations or bulges are present. Prominent facet degenerative changes and ligamento us hypertrophy. Stable moderate central canal stenosis. No significant neural foraminal narrowing. Findings similar to prior. The visualized SI joints and sacrum are well maintained. Soft tissues: A horseshoe kidney is noted. IMPRESSION: Some interval worsening of eccentric disc bulging toward the right at L4-5 causing moderate to severe central canal stenosis as well as severe right neural foraminal narrowing. Stable moderate central canal stenosis at L5-S1. DATA REPOSITORY:
== END 2023-01-28 00:59 ==
LOC: DI 00:40
PROVIDERS: PCP Nurse Practitioner Family; Visit Provider Nurse Practitioner Family
DX: G89.29 Other chronic pain (principal); M54.9 Dorsalgia, unspecified
CPT/HCPCS: 72148

== ENCOUNTER 2023-04-14 01:57 | Outpatient (CLI) | payer MEDICARE, SELFPAY ==
--- NOTE | 2023-04-14 08:00 | DI.DEXA_ITS ---
Exam(s) XR DEXA BONE DENSITY W/WO DEEPA EXAM: XR DEXA BONE DENSITY W/WO DEEPA CLINICAL HISTORY: screening for osteoporosis in postmenopausal woman,z78.0 TECHNIQUE: Routine DEXA evaluation of the lumbar spine, hip, or forearm. COMPARISON: No exams were available for comparison FINDINGS: Performed on a Hologic unit. Lateral image: No compression fracture evident. Lumbar Spine total T-score: -0.9 Hip total T-score:-0.5 Independent reading at the level of the femoral neck yields T-score of -1.8 Forearm total T-score: -1.1 IMPRESSION: Bone mineral density measures in the osteopenia range. Fracture risk is moderate. Note: Any spine fracture indicates 5x risk for subsequent spine fracture and 2x risk for subsequent h ip fracture. World Health Organization criteria for BMD interpretation classify patients: Normal...... T- Score at or above -1.0 Osteopenic... T- Score between -1.0 and -2.5 Osteoporosis... T-Score at or below -2.5
--- NOTE | 2023-04-14 12:49 | DI.MAMMO_ITS ---
Exam(s) MAMMO SCREENING EXAM: MAMMO SCREENING CLINICAL HISTORY: screening,z12.39. TECHNIQUE: Bilateral full field digital CC and MLO mammographic images were obtained with 3D tomosyn thesis and utilizing computer aided detection (CAD). COMPARISON: Prior mammograms were reviewed. FINDINGS: There has been no significant change in the appearance and distribution of the fibroglandular tissue. There are no new spiculated masses nor malignant appearing microcalcification groups. There is no significant architectural distortion nor skin thickening-retraction. IMPRESSION: No radiographic evidence of malignancy. BI-RADS Category 1 - Negative Breast Density - Category A - Almost entirely fatty Breast density Category C or D implies that the patient has dense breast tissue. Dense breast tissue can make it harder to find cancer on a mammogram. Dense breast tissue is also associated with an incr eased risk of breast cancer. This information about the result of the mammogram report was provided to the patient to raise their awareness. Use this report when you speak with the patient about their risks for breast cancer, which includes their family history. At that time, you may recommend additional screening tests (Ultrasoun d or MRI) as these tests may add significant information. A negative radiographic report should not delay biopsy if a dominant or clinically suspicious mass is present. Up to ten percent of cancers are not identified on mammography. A negative report may reinforce clinical impression. Adenosis and dense breasts may obscure an underlying neoplasm. False positive reports average 6 to 10%. Patient will receive a letter notifying them of these results.
== END 2023-04-14 02:17 ==
LOC: DI 01:58
PROVIDERS: PCP Nurse Practitioner Family; Visit Provider Nurse Practitioner Family
DX: Z12.31 Encounter for screening mammogram for malignant neoplasm of breast (principal); Z78.0 Asymptomatic menopausal state; M85.88 Other specified disorders of bone density and structure, other site
CPT/HCPCS: 77063; 77067; 77080

== ENCOUNTER 2023-06-10 02:00 | Outpatient (CLI) | payer MEDICARE, SELFPAY ==
[2023-06-10 13:19] LABS: Hemoglobin A1C 12.8 % (<5.7)
== END 2023-06-10 02:01 | disposition home or self-care (01) ==
LOC: LBO 02:01
PROVIDERS: PCP Nurse Practitioner Family; Visit Provider Nurse Practitioner Family
DX: E11.22 Type 2 diabetes mellitus with diabetic chronic kidney disease (principal)
CPT/HCPCS: 36415; 83036

== ENCOUNTER 2023-06-15 07:49 | Outpatient (CLI) | payer MEDICARE, SELFPAY ==
[2023-06-15 08:01] VITALS: BP 129/61; PULSE 63; RESP 20; TEMP 36.8; O2SAT 99
[2023-06-15 08:38] VITALS: PULSE 57; O2SAT 99
--- NOTE | 2023-06-15 08:46 | PDOC.PAIN_ITS ---
Date of service: 06/15/23 Time of Service: 08:47 Pain Managment Procedure Note Procedure Note Procedure Note: PROCEDURE NOTE ULTRASOUND-GUIDED RIGHT GLUTEUS MEDIUS TENOTOMY PROCEDURE Date of Service: June 15, 2023 Patient: Karly Edwards Provider: Kasi Edmondson DO, MPH Pre-operative diagnosis: Hip pain Post-operative diagnosis: Same Pre-procedure pain: VAS= 9/10 COMMENTS: At the time of the my office evaluation with the patient, her left lateral hip was worse. Over the past month, it has been her right hip that is worse. For this reason I am starting with the right side first. I also changed this procedure from a trochanteric bursa injection with steroids to a gluteus medius tendon needling procedure as her Hem A1c is very high (>12). She understands Karly Winn Jerry has been referred to the [facility] for an ultrasound-guided Right gluteus medius needling procedure. Karly was interviewed and the medical record reviewed. There were no medical, pharmacologic, radiographic or other structural contraindications to attempting a gluteus medius tenotomy procedure. Risks and potential side effects as well as potential benefit of the procedure were reviewed with Ms. Edwards, and her vo iced concerns were addressed. After verbal informed consent was obtained, the printed consent form was signed. Standard time-out procedure was performed. Karly was placed in the lateral recumbant position on the procedure table with the affected side up. Next, automated blood pressure cuff and pulse oximeter applied. The skin entry point for approaching the RIGHT greater trochanter was identified under the most advantageous ultrasound view and marked. Following thorough Chlorhexadine preparation of the skin and draping and 1% lidocaine infiltration of the skin entry point and subcutaneous tissues, a 25 gauge spinal needle was placed under ultrasound guidance using an in-plane view towards the gluteus medius tendon. I injected 3 cc of 1% Lidocaine for local anesthesia. Next, I inserted a 3.5 Pajunk US needle and adjusted the angle of the needle to point at the gluteus medius tendon. I injected 3 ml of 1% Lidocaine just outside the tendon and made 20 puncture holes in the distal tendon with the US needle under ultrasound guidance. The needle was then removed without difficulty. Andrias vital signs were stable throughout the procedure and were as recorded in the docflowsheet by the nursing staff. If given, dosages of intravenous drugs for anxiolysis and analgesia were documented in MAR. Follow up plans and appointments were discussed with the Karly. Post procedure instruction was given as documented in nursing documentation and having met discharge criteria, Karly was discharged from the [facility]. COMMENTS: No apparent complications. Post-procedure pain;VAS= 9/10 The patient understands that she should be nearly [id number] over the next 7 days. After that he will concentrate of gluteal muscle and IT band stretching for 2 weeks. At 3 weeks post-tendon needling procedure, Karly can start toning exercises for the gluteal muscles. F/U with our office as needed. Gluteus Medius tenotomy or needle fenestration has been shown to produce improvement in the majority of patients at a 2 month follow up. Roselyn HOPPER1, Jai J2, Rene CM2, Chichi SM2, Jose M M2, Judith A2. Ultrasound-Guided Fenestration of Tendons About the Hip and Pelvis: Clinical Outcomes. J Ultrasound Med. 2015 Nov;34(11):2029-35. doi: 10.7863/ultra.[id number]. Epub 2014Jul 04. Oliver HOPPER1, Roselyn HOPPER, Seema R.Sonographically guided percutaneous needle tenotomy for the treatment of chronic tendinosis. J Ultrasound Med. 2009 Jun ;28(9):1187-92. Roselyn HOPPER1, Rene CM2, Lay PT3, Jae IS4, Bandar A5, Castro B5, Carlita A5, Judith A6.Greater Trochanteric Pain Syndrome: Percutaneous Tendon Fenestration Versus Platelet-Rich Plasma Injection for Treatment of Gluteal Tendinosis. J Ultrasound Med. 2016 Nov;35(11):0677-6633. Epub 2016 Jun 25. I personally performed this entire procedure. Kasi Edmondson DO, MPH ABPMR-subspecialty board certification in Pain Medicine Attending Physician-Pain Management
== END 2023-06-15 07:50 | disposition home or self-care (01) ==
LOC: PC 07:49
PROVIDERS: PCP Nurse Practitioner Family; Visit Provider Preventive Medicine Occupational Medicine
DX: M54.50 Low back pain, unspecified (principal); M25.551 Pain in right hip
CPT/HCPCS: 20611

== ENCOUNTER → 2023-07-07 02:56 | Outpatient (CLI) | payer MEDICARE, SELFPAY ==
--- NOTE | 2023-07-07 07:55 | DI.CT_ITS ---
Exam(s) CT HEAD WO EXAM: CT HEAD WO CLINICAL HISTORY: trauma,NEW DAILY PERSISTENT HEADACHES,644.52. TECHNIQUE: Imaging Protocol: Axial computed tomography images with coronal and sagittal reformatted images were created and reviewed COMPARISON: CT CT HEAD WO from 07/31/2021 FINDINGS: There are no skull fractures. Tiny amount of fluid noted in the left maxillary sinus. Only part of t he maxillary sinuses included in the field of view. Remainder of the visualized paranasal sinuses ar e clear as are the mastoid air cells. There is no evidence of intracranial hemorrhage, mass effect, or shift of midline structures. There are no extra-axial fluid collections. The ventricles are not enlarged or shifted and there is no blo od within the ventricular system nor within the basal cisterns. IMPRESSION: No acute intracranial findings on this noninfused CT scan of the brain. Some fluid noted in left maxillary sinus. RADIATION DOSE DELIVERED: 610.21mGy.cm Total DLP DATA REPOSITORY: All CT scans at this facility are submitted to the National Radiology Data Registry (NRDR) Dose Index Registry (DIR) with the [employer] (A[employer]). RADIATION OPTIMIZATION: All CT scans at this facility use at least one of these dose optimization te chniques: automated exposure control; mA and/or kV adjustment per patient size (includes targeted exa ms where dose is matched to clinical indication); or iterative reconstruction.
== END ==
PROVIDERS: PCP Nurse Practitioner Family; Visit Provider Nurse Practitioner Family
DX: G44.52 New daily persistent headache (NDPH) (principal)
CPT/HCPCS: 70450

== ENCOUNTER → 2023-09-14 03:23 | Outpatient (CLI) | payer MEDICARE, SELFPAY ==
--- NOTE | 2023-09-14 07:30 | DI.RAD_ITS ---
Exam(s) XR FOOT LT COMPLETE EXAM: XR FOOT LT COMPLETE CLINICAL HISTORY: Left foot/toe pain,M79.672,M79.675. TECHNIQUE: 2D digital imaging was performed of the left foot. Three images were obtained. AP, obli que and lateral views were obtained. COMPARISON: No exams were available for comparison FINDINGS: BONES: No acute fracture is present. No bony destructive lesion is seen. There is a small plantar spu r. There is an enthesophyte at the posterior calcaneus. JOINTS: No dislocation present. Mild degenerative changes are seen in the foot. SOFT TISSUE: Normal. IMPRESSION: No acute abnormality. DATA REPOSITORY: RADIATION DOSE DELIVERED:
--- NOTE | 2023-09-14 07:30 | DI.RAD_ITS ---
Exam(s) XR FOOT RT COMPLETE EXAM: XR FOOT RT COMPLETE CLINICAL HISTORY: RT TOE AND FOOT PAIN,M79.671,M79.674. TECHNIQUE: 2D digital imaging was performed of the right foot. Three images were obtained. AP, obl ique and lateral views were obtained. COMPARISON: No exams were available for comparison FINDINGS: BONES: No acute fracture is present. No bony destructive lesion is seen. JOINTS: No dislocation present. Mild degenerative changes are seen in the foot particularly at the ta lonavicular joint in the interphalangeal joints of the toes. SOFT TISSUE: Soft tissue calcifications of the plantar fascia are noted. IMPRESSION: Mild degenerative changes seen in the foot. DATA REPOSITORY: RADIATION DOSE DELIVERED:
== END ==
PROVIDERS: PCP Nurse Practitioner Family; Visit Provider Podiatrist
DX: M79.671 Pain in right foot (principal); M79.674 Pain in right toe(s); M79.672 Pain in left foot; M79.675 Pain in left toe(s)
CPT/HCPCS: 11721; 73630

== ENCOUNTER → 2023-10-06 08:54 | Outpatient (BNVA) | payer MEDICARE, SELFPAY | PROVIDERS: PCP Nurse Practitioner Family; Referring Provider Nurse Practitioner Family; Visit Provider Nurse Practitioner Gerontology | DX: Q63.1 Lobulated, fused and horseshoe kidney (principal); Z87.440 Personal history of urinary (tract) infections; N28.9 Disorder of kidney and ureter, unspecified; G89.29 Other chronic pain; R35.0 Frequency of micturition; M54.9 Dorsalgia, unspecified; R32 Unspecified urinary incontinence | CPT/HCPCS: 51798; 99215 ==

== ENCOUNTER → 2023-10-14 02:25 | Outpatient (CLI) | payer MEDICARE, SELFPAY ==
--- NOTE | 2023-10-14 07:45 | DI.US_ITS ---
Exam(s) US RENAL EXAM: US RENAL CLINICAL HISTORY: ? hydronephrosis,HORSESHOE KIDNEY,DECREASED RENAL FUNCTION,N28.9. TECHNIQUE: Chacko scale, color and spectral Doppler were used. COMPARISON: MR MRI - LUMBAR SPINE WO CONTRAST from 03/11/2014 MR MR LUMBAR SPINE WO from 07/26/[address] CHEST PE CTA from 07/31/2021 MR MR LUMBAR SPINE WO from 01/28/2023 FINDINGS: The patient has a horseshoe kidney. Renal size in cm: Right: 10.3. Left: 9.1. Echogenicity: Normal. Hydronephrosis: Mild prominence of both ureters. Cyst or mass: No. Nephrolithiasis: No. Other findings: None. Bladder:Normal. Ureteral jets: Right: Visualized and unremarkable. Left: Visualized and unremarkable. Prevoid vol:377 cc Postvoid vol:0 cc Renal color flow: Symmetric and within normal limits. IMPRESSION: 1. Horseshoe kidney 2. Mild prominence of both renal collecting systems. This may reflect prominent extrarenal pelves ve rsus hydronephrosis. Clinical correlation is recommended. DATA REPOSITORY:
== END ==
PROVIDERS: PCP Nurse Practitioner Family; Visit Provider Nurse Practitioner Gerontology
DX: G89.29 Other chronic pain (principal); N28.9 Disorder of kidney and ureter, unspecified; Q63.1 Lobulated, fused and horseshoe kidney
CPT/HCPCS: 76770

== ENCOUNTER 2023-10-14 17:59 | Outpatient (REF) | payer MEDICARE, SELFPAY ==
[2023-10-14 17:29] LABS: Bilirubin Negative (Negative); Blood Negative (Negative); Clarity Sl Cloudy (Clear); Glucose >=1000 mg/dL (Negative); Ketones Trace mg/dL (Negative); Leukocyte Esterase Trace (Negative); Nitrite Negative (Negative); Specific Gravity 1.015 (1.005-1.025); Urobilinogen 0.2 mg/dL (Up to 0.2)
[2023-10-14 17:44] LABS: Bacteria Many HPF (Negative); C & S Indicated? Yes; Casts Negative LPF (Negative); Crystals Negative HPF (Negative); Epithelial Cells Few HPF (Negative); Mucus Negative (Negative); RBC 0-2 HPF (0-2)
== END 2023-10-14 18:00 | disposition home or self-care (01) ==
LOC: LBN 17:59
PROVIDERS: PCP Nurse Practitioner Family; Visit Provider Nurse Practitioner Gerontology
DX: R35.0 Frequency of micturition (principal); R32 Unspecified urinary incontinence; N28.9 Disorder of kidney and ureter, unspecified
CPT/HCPCS: 87077; 81003; 81015; 87086; 87186

== ENCOUNTER → 2023-10-18 07:48 | Outpatient (BNVA) | payer MEDICARE, SELFPAY | PROVIDERS: PCP Nurse Practitioner Family; Referring Provider Nurse Practitioner Family; Visit Provider Nurse Practitioner Gerontology | DX: Q63.1 Lobulated, fused and horseshoe kidney (principal); R82.90 Unspecified abnormal findings in urine | CPT/HCPCS: 99213 ==

== ENCOUNTER → 2023-12-19 10:23 | Outpatient (BNVA) | payer MEDICARE, SELFPAY | PROVIDERS: PCP Nurse Practitioner Family; Referring Provider Nurse Practitioner Family; Visit Provider Podiatrist | DX: E11.51 Type 2 diabetes mellitus with diabetic peripheral angiopathy without gangrene; I70.203 Unspecified atherosclerosis of native arteries of extremities, bilateral legs; M79.671 Pain in right foot; M79.672 Pain in left foot; D36.10 Benign neoplasm of peripheral nerves and autonomic nervous system, unspecified; M20.41 Other hammer toe(s) (acquired), right foot; M20.42 Other hammer toe(s) (acquired), left foot | CPT/HCPCS: 93922 ==

== ENCOUNTER 2024-01-04 05:08 | Outpatient (CLI) | payer MEDICARE, SELFPAY ==
[2024-01-04 10:00] LABS: ALT 25 U/L (14-59); AST 14 U/L (15-37); Albumin 3.8 g/dL (3.4-5.0); Alkaline Phosphatase 52 U/L (46-116); Anion Gap 8.7 mmol/L (3-11); BUN 20 mg/dL (7-18); Bilirubin, Total 0.4 mg/dL (0.2-1.0); CO2 31.3 mmol/L (21.0-32.0); Calcium 9.8 mg/dL (8.5-10.1); Calculated LDL 57 mg/dL (<100); Chloride 104 mmol/L (98-107); Cholesterol 139 mg/dL (<200); Estimated GFR 61.75 (mL/min/1.73m2); Glucose 79 mg/dL (74-106); HDL Cholesterol 62 mg/dL (40-60); Potassium 3.5 mmol/L (3.5-5.1); Sodium 144 mmol/L (136-145); TSH (W/Ref FT4) 0.06 uIU/mL (0.36-3.74); Total Protein 7.3 g/dL (6.4-8.2); Triglyceride 101 mg/dL (<150)
[2024-01-04 10:33] LABS: FREE T4 1.65 ng/dL (0.76-1.46)
[2024-01-04 19:06] LABS: HIV-1/2 Ag & Ab Screen Negative (Negative)
== END 2024-01-04 05:09 | disposition home or self-care (01) ==
LOC: LBO 05:08
PROVIDERS: PCP Nurse Practitioner Family; Visit Provider Nurse Practitioner Family
DX: Z11.4 Encounter for screening for human immunodeficiency virus [HIV] (principal); E78.5 Hyperlipidemia, unspecified; E03.9 Hypothyroidism, unspecified
CPT/HCPCS: 36415; 80053; 80061; 87389; 84439; 84443

== ENCOUNTER 2024-03-20 08:33 | Outpatient (CLI) | payer MEDICARE, SELFPAY | END 2024-03-20 08:34 | disposition home or self-care (01) | LOC: LBO 08:33 | PROVIDERS: PCP Nurse Practitioner Family; Visit Provider Nurse Practitioner Family | DX: E03.9 Hypothyroidism, unspecified (principal) | CPT/HCPCS: 36415; 84439; 84443 ==

== ENCOUNTER 2024-05-18 01:44 | Outpatient (CLI) | payer MEDICARE, SELFPAY ==
[2024-05-18 08:54] LABS: ALT 50 U/L (14-59); AST 28 U/L (15-37); Albumin 3.8 g/dL (3.4-5.0); Alkaline Phosphatase 55 U/L (46-116); Anion Gap 7.6 mmol/L (3-11); BUN 33 mg/dL (7-18); Bilirubin, Total 0.36 mg/dL (0.2-1.0); CO2 31.4 mmol/L (21.0-32.0); Calcium 9.5 mg/dL (8.5-10.1); Chloride 104 mmol/L (98-107); Estimated GFR 61.75 (mL/min/1.73m2); Glucose 90 mg/dL (74-106); Potassium 4.2 mmol/L (3.5-5.1); Sodium 143 mmol/L (136-145); TSH (W/Ref FT4) 0.43 uIU/mL (0.36-3.74); Total Protein 7.2 g/dL (6.4-8.2)
[2024-05-18 11:43] LABS: Hemoglobin A1C 6.3 % (<5.7)
== END 2024-05-18 01:45 | disposition home or self-care (01) ==
LOC: LBO 01:45
PROVIDERS: PCP Nurse Practitioner Family; Visit Provider Nurse Practitioner Family
DX: E11.22 Type 2 diabetes mellitus with diabetic chronic kidney disease (principal); E03.9 Hypothyroidism, unspecified
CPT/HCPCS: 36415; 80053; 83036; 84443

== ENCOUNTER 2024-05-23 07:57 | Outpatient (CLI) | payer MEDICARE, SELFPAY ==
--- NOTE | 2024-05-23 08:15 | RT.EKG_ITS ---
APPROVED REPORT Exam: Resting ECG Reason for Exam: pre-op exam Patient Location: O HR:60 bpm ECG Measurements Heart Rate 60 AXIS VA 162 P 35 QRSd 96 QRS 2 QT 424 T 28 QTc 424 Conclusion Sinus rhythm...normal P axis, V-rate 50- 99 Low voltage, precordial leads...precordial leads <1.0mV
== END 2024-05-23 07:58 | disposition home or self-care (01) ==
PROVIDERS: PCP Nurse Practitioner Family; Visit Provider Nurse Practitioner Family
DX: Z01.818 Encounter for other preprocedural examination (principal)
CPT/HCPCS: 93010

== ENCOUNTER 2024-07-13 09:20 | Outpatient (REF) | payer MEDICARE, SELFPAY | END 2024-07-13 09:21 | disposition home or self-care (01) | LOC: LBN 09:20 | PROVIDERS: PCP Nurse Practitioner Family; Visit Provider Nurse Practitioner Family | DX: T14.8XXA Other injury of unspecified body region, initial encounter (principal) | CPT/HCPCS: 87070; 87205 ==

== ENCOUNTER 2024-12-25 21:53 | Outpatient (REF) | payer MEDICARE, SELFPAY ==
[2024-12-25 22:30] LABS: ALT 71 U/L (14-59); AST 31 U/L (15-37); Albumin 3.8 g/dL (3.4-5.0); Alkaline Phosphatase 70 U/L (46-116); Anion Gap 3.3 mmol/L (3-11); BUN 21 mg/dL (7-18); Bilirubin, Total 0.3 mg/dL (0.2-1.0); CO2 34.7 mmol/L (21.0-32.0); CREATININE 0.9 mg/dL (0.55-1.02); Calcium 9.6 mg/dL (8.5-10.1); Calculated LDL 67 mg/dL (<100); Chloride 106 mmol/L (98-107); Cholesterol 170 mg/dL (<200); Estimated GFR 69.64 (mL/min/1.73m2); Glucose 79 mg/dL (74-106); HDL Cholesterol 61 mg/dL (>or=50); Potassium 4.4 mmol/L (3.5-5.1); Sodium 144 mmol/L (136-145); TSH (W/Ref FT4) 2.26 uIU/mL (0.36-3.74); Total Protein 7.1 g/dL (6.4-8.2); Triglyceride 210 mg/dL (<150)
== END 2024-12-25 21:54 | disposition home or self-care (01) ==
LOC: LBN 21:53
PROVIDERS: PCP Nurse Practitioner Family; Visit Provider Nurse Practitioner Family
DX: E78.5 Hyperlipidemia, unspecified (principal); E11.22 Type 2 diabetes mellitus with diabetic chronic kidney disease; E03.9 Hypothyroidism, unspecified; B34.9 Viral infection, unspecified
CPT/HCPCS: 80053; 80061; 83036; 84443